=== PATIENT | male | born 1955 | race Caucasian/White ===

== ENCOUNTER 2024-04-21 14:44 | Inpatient (IN) | payer MEDICARE, OTHER, SELFPAY ==
[2024-04-21] VITALS (37 sets, daily range): BP systolic 121–146; BP diastolic 68–98; BMI 23.9; BMI 22.5
[2024-04-21 13:47] LABS: Glucose - Point of Care 113 mg/dl (70-99)
--- NOTE | 2024-04-21 13:48 | CON.NEURO4 ---
Consultation - Neurology 4
-
CONSULTING PHYSICIAN: Lobo Liriano
REFERRING PHYSICIAN: ER
DICTATED BY: Lobo Liriano
DATE/TIME OF REQUEST: 04/21/24
DATE/TIME OF CONSULTATION: 04/21/24
Reason for Consultation: Right sided weakness stroke alert
History of Present Illness:
Patient is a 68 year old man with history of stage 4 renal cancer and hypertension presenting as stroke alert with right face/arm/leg weakness starting at approximately 1:10 PM today. He woke up feeling fine and had gone to [place] with his
daughter in law to enjoy shopping and the weather. He had exited the car and was not walking, lowered himself to the ground, and in the minutes after this had giving out of his right leg and right arm weakness as well. He had no head trauma or
loss of consciousness. EMS quickly arrived and on their assessment he had right facial weakness, dysarthria, right arm and leg weakness, normal blood sugar.
Patient is on no blood thinners, no history of TIA or stroke previously, no history of any recent bleeding events or surgeries, no brain bleed in the past or any neurosurgeries to brain or spine. He is compliant with medications for hypertension
cancer. He was diagnosed with renal cancer in October 2023, has been on Keytruda infusion and PO Lenvatinib.
Past Medical History: Stage 4 renal cell carcinoma, hypertension
Surgical History: None
Family History: Non-contributory
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
Allergies: Latex
Review of Symptoms:
Patient denies any fever, headache, chest pain, shortness of breath, GI or symptoms.
Physical Exam:
Middle aged man no distress, no head or neck trauma, oropharynx clear, neck no masses, heart rate regular, breathing unlabored, abdomen soft non tender, no lower extremity edema or rash
Neurologic Examination:
Mental status awake and alert, good insight, conversational, comprehension of complex commands and repetition is normal, no neglect on arms
Cranial nerves shows moderate dysarthria, obvious right facial weakness, resting gaze midline, no gaze deviation, pupils 3 mm round equally reactive to light no ptosis, intact visual villagomez to confrontation bilaterally, tongue midline,
Motor exam shows right arm downward drift, minimal right leg downward drift, left arm and leg full strength
Sensory exam no sensory neglect, intact to noxious stimulation
Reflexes diminished throughout, no clonus, babinski negative
Gait Deferred
Neuro Imaging: CT head non contrast no hemorrhage seen, no hyperdense MCA sight seen, no early ischemia seen, ASPECTS of 10, no chronic infarcts seen, no masses or edema, no hydrocephalus
CTA head and neck no significant carotid or intracranial stenosis or occlusions, no aneurysms or vessel malformations, bilateral pulmonary embolisms seen
Impressions
1. Acute left sided ischemic stroke s/p TNK, no large vessel occlusions on CTA head neck. Most likely etiologies are hypercoaguability of malignancy versus small vessel disease from hypertension
2. Acute pulmonary embolism appears minimally to asymptomatic
3. Stage 4 renal cancer
4. Hypertension
Patient has the following risk factors for their symptoms: Hypertension, age, malignancy
IV Tenecteplase/IAT candidacy: Patient presents with disabling symptoms due to ischemic stroke within 4.5 hour time window for TNK with no contraindications to TNK, risks of TNK discussed including allergy, anaphylaxis angioedema, 4-6% chance of
intracranial bleeding, benefits are felt to outweigh risks and patient consented to medication, patient endorsed understanding of reasons for medications as well as risks and is agreeable. No LVO on CTA not an IAT candidate
Recommendations:
1. s/p TNK precautions for acute stroke, ICU level of care
2. Would obtain CT head non contrast tomorrow before the 24 hour shantel after TNK, will put in for 11 AM. Would wait 24 hours after TNK administration before therapeutic anticoagulation.
3. MRI brain non contrast non urgently, can wait until later in the day 04/22 or 04/23 is acceptable
4. Cardiac telemetry
5. Transthoracic echocardiogram given the PE
6. BP goal less than 180/105, labetalol PRN
7. Neuro checks and NIH scales
8. Goal normoglycemia
9. Check lipid panel and HbA1c
10. Monitor respiratory and cardiac status given the PE
Will follow
ICU time = 60 minutes
Discussed patient care with: Patient, his family, ER
NIH Stroke Score
Subsequent NIH Scale
Date of Subsequent NIH Scale: 04/21/24
Time of Subsequent NIH Scale: 13:49
NIH Stroke Score
Level of Consciousness: 0 - Alert
LOC Questions: 0-Answers both correctly
LOC Commands: 0-Performs both correctly
Best Horizontal Gaze: 0-Normal
Visual Villagomez: 0=Normal, no visual loss
Facial Palsy: 2=Partial paralysis
Motor - Right Arm: 1=Drift < 10 seconds
Motor - Left Arm: 0=No drift 10 seconds
Motor - Right Le-Drift < 5 seconds
Motor - Left Le-No drift 5 seconds
Limb Ataxia: 0-Absent
Sensation: 0-Normal
Best Language: 0-No aphasia
Dysarthria: 1-Mild slurring
Extinction and Inattention: 0-No abnormality
Total Score:: 5
Modified Moffat (mRS) Score
Modified Moffat Scale (mRS): No symptoms
Score: 0
Home Medications
-
Home Medications
amlodipine 10 mg tablet 10 mg PO DAILY 04/21/24
chlorthalidone 25 mg tablet 25 mg PO DAILY 04/21/24
finasteride 5 mg tablet 2.5 mg PO DAILY 04/21/24
lactulose 10 gram/15 mL oral solution (Constulose) 30 ml PO BID 04/21/24
lenvatinib 8 mg/day (4 mg x 2) capsule (Lenvima) 0 mg PO PER PKG DIR 04/21/24
levothyroxine 75 mcg tablet (Synthroid) 75 mcg PO DAILY 04/21/24
losartan 100 mg tablet 100 mg PO DAILY 04/21/24
oxycodone myristate 9 mg capsule sprinkle extended release 12 hr(DON'T CRUSH) (Xtampza ER) 9 mg PO BID 04/21/24
sildenafil 100 mg tablet 100 mg PO DAILYPRN PRN ed 04/21/24
Vital Signs / Labs
-
Vital Signs and Labs:
04/21/24
13:46
POC Glucose 113 H
--- NOTE | 2024-04-21 13:48 | PHANOTE ---
Med Rec Note- patient has not ecw, used pharmacy records, and awaiting family arrival
--- NOTE | 2024-04-21 13:54 | ED.GENMED ---
History of Present Illness
General
Chief Complaint: CVA/TIA Symptoms
Source: patient and ambulance crew
Exam Limitations: none
Time Seen by Provider: 04/21/24 13:44
History of Present Illness
History of Present Illness:
See MDM
Past History
Past History
ED Past Medical History: HTN
ED Past Surgical History: None
Social History
Tobacco: Non-smoker
Alcohol: None
Phy Exam
Physical Exam
Physical Exam:
See MDM
Scores
NIH Stroke Score
Level of Consciousness: 0 - Alert
LOC Questions: 0-Answers both correctly
LOC Commands: 0-Performs both correctly
Best Horizontal Gaze: 0-Normal
Visual Villagomez: 0=Normal, no visual loss
Facial Palsy: 2=Partial paralysis
Motor - Right Arm: 1=Drift < 10 seconds
Motor - Left Arm: 0=No drift 10 seconds
Motor - Right Le-Drift < 5 seconds
Motor - Left Le-No drift 5 seconds
Limb Ataxia: 0-Absent
Sensation: 0-Normal
Best Language: 0-No aphasia
Dysarthria: 1-Mild slurring
Extinction and Inattention: 0-No abnormality
Total Score:: 5
Course
Orders/Labs/Results
Orders:
Orders
04/21/24 13:44
Electrocardiogram (*1) Stat
Reason for Study: Other
Other Reason for Exam: neuro symptoms
CT Head W/o Cont STROKE ALERT Urgent
Reason For Exam: R sided paralysis, slurred speech
CT Head/Neck Ang STROKE ALERT Urgent
Comment:
Reason For Exam: R hemiparesis
NEUROLOGY CONSULT Urgent
Consulting Provider: Gilbert Liriano
Was physician already notified: Yes
Cardiac Monitoring- Treatment ONCE
EKG- Treatment ONCE
04/21/24 14:00
Complete Blood Count/With Diff Urgent
Comprehensive Metabolic Panel Urgent
PTT Urgent
Prothrombin Time Urgent
Troponin I Urgent
04/21/24 14:02
Tenecteplase [Tnkase] 18 mg Syringe [Syringe Non-Pump] 0 ml IV NOW
04/21/24 15:00
Flush (0.9% Sodium Chloride) [Flush (Nss)] See Dose Instructions IV PER PROTOCOL
Abnormal Lab Results
04/21/24 04/21/24
13:46 14:00
WBC 4.6 L 10^3/uL
(4.8-10.8)
RBC 3.64 L 10^6/uL
(4.70-6.10)
Hgb 11.5 L g/dL
(13.0-18.0)
Hct 32.5 L %
(39.0-52.0)
MCH 31.6 H pg
(27.0-31.0)
RDW 16.1 H %
(11.5-14.5)
PT 15.4 H Sec
(11.4-14.6)
POC Glucose 113 H mg/dl
(70-99)
04/21/24 14:00
Vital Signs
Initial and Last Documented VS:
Initial Vital Signs
Temp Pulse Resp Pulse Ox
98.5 F 103 15 100
04/21/24 14:03 04/21/24 14:03 04/21/24 14:03 04/21/24 14:03
Last Documented Vital Signs
Temp Pulse Resp BP Pulse Ox
98.5 F 101 14 134/84 100
04/21/24 14:03 04/21/24 14:08 04/21/24 14:08 04/21/24 14:08 04/21/24 14:03
MDM/Problems Addressed
Differential Diagnosis Includes:
HPI and MDM Narrative:
68-year-old male presenting by EMS as a prearrival stroke alert. Per EMS, symptoms started around 1:10 PM. Patient got out of his car and it was noted that he had right-sided weakness and right facial droop. On arrival to the emergency department
by myself and neurology immediately. Patient sent to CT scanner
Family indicating history of metastatic renal cancer to lung
Physical exam
General: Well appearing and non-toxic
HEENT: protecting airway
Neck: appears supple
CV: No evidence of cyanosis.. Regular rate and rhythm
Resp: No accessory muscle use
Abd: Non-distended
Extremities: No deformities
Neuro: Right-sided facial droop, drift to right arm and right leg, mild dysarthria
Psych: Normal affect
Skin: Intact
Problems Addressed including Acute and Chronic Conditions affecting care:
1. CVA
Acuity: acute
Prognosis: unstable
Details: CT head negative. Case discussed with neurology. Patient is a TNK candidate
Updates
Symptoms are somewhat improving but still there. He is still in the TNK window. Patient consented for TNK
2:15 PM radiology called indicating multiple PEs. Will continue with TNK. The admitting team was updated
Differential Diagnosis (but not limited to): Stroke, intracranial hemorrhage, TIA
Testing considered: Brain MRI
Drug therapy (if applicable): OTC meds, please see d/c instruction regarding Rx drugs
Amount and/or Complexity of Data Reviewed
Clinical info obtained from: Patient
External data reviewed: N/A
Labs I independently reviewed (but not limited to): Hgb
Radiology: The CT scan was personally and independently reviewed. In addition, official CT report reviewed.
Pulse Ox: not hypoxic
EKG independently reviewed: Sinus tachycardia, normal axis, no STEMI
Econometrics Professor: Sinus rhythm
Critical Care: The high probability of a clinically significant, sudden or life threatening deterioration of the neurovascular/pulmonary system(s) required my full and direct attention, intervention and personal management. The aggregate critical
care time was 33 minutes. This time is in addition to time spent performing reported procedures but includes the following:
[x] Data Review and interpretation
[x] Patient assessment and monitoring of vital signs
[x] Documentation
[x] Medication orders and management
Risk of Complication:
Social Determinants of health: Good social support
Discussed with other providers: Hospitalist, neurology, radiology
Escalation of Care includes Admit/Obs: Given the concern for stroke and PEs, will admit
Occasional wrong word or 'sound a like' substitutions may have occurred due to the inherent limitations of voice recognition software. Read the chart carefully and recognize, using context, where substitutions have occurred.
*Critical Care Note
Total Time (30-74mins, 75-104mins- exclusive of procedures): 33 min
ED Attending Note
-
Portions of this chart may have been created with voice recognition software.� Occasional wrong word or��sound alike� substitutions may have occurred due to the inherent limitations of voice recognition software.
Discharge Plan
Departure
Patient Disposition: Admit
Date of Disposition: 04/21/24
Time of Disposition: 14:21
Admit to: ICU
Presentation/result/management discussed w/ accepting MD/DO: Hospitalist
Discharge Problem:
Acute CVA (cerebrovascular accident), Pulmonary embolism
Prescriptions:
No Action
chlorthalidone 25 mg Tablet
25 mg PO DAILY
sildenafil 100 mg Tablet
100 mg PO DAILYPRN PRN (Reason: ed)
levothyroxine [Synthroid] 75 mcg Tablet
75 mcg PO DAILY
amlodipine 10 mg Tablet
10 mg PO DAILY
losartan 100 mg Tablet
100 mg PO DAILY
finasteride 5 mg Tablet
2.5 mg PO DAILY
lactulose [Constulose] 10 gram/15 mL solution
30 ml PO BID
Xtampza ER 9 mg Cap,Sprinkl,Er12hr(Dont Crush)
9 mg PO BID
Lenvima 8 mg/day (4 mg x 2) Capsule
0 mg PO PER PKG DIR
Interventions
Interventions:
*ED COVID-19 Vaccine History Last Done: 04/21/24 14:05
ED- Pulmonary Assessment Last Done: 04/21/24 14:06
ED- Cardiac Assessment Last Done: 04/21/24 14:06
Discharge Date and Time
Print Language: CHINESE
[2024-04-21] MEDS: TNKASE 3.60000000000000009 MG IV (14:07)
[2024-04-21 14:08] LABS: % Basophils 0.7 % (0-2); % Eosinophils 2.2 % (0-6); % Lymphocytes 38.6 % (20.5-51.1); % Neutrophils 49.5 % (42.2-75.2); Absolute Eosinophils 0.1 10^3/uL (0-0.7); Absolute Lymphocytes 1.8 10^3/uL (1.2-3.4); Absolute Monocytes 0.4 10^3/uL (0.1-0.6); Absolute Neutrophils 2.3 10^3/uL (1.4-6.5); Hematocrit 32.5 % (39.0-52.0); Hemoglobin 11.5 g/dL (13.0-18.0); Mean Corp Hgb Conc. 35.4 g/dL (33.0-37.0); Mean Corpuscular Hgb 31.6 pg (27.0-31.0); Mean Corpuscular Volume 89.3 fL (80.0-94.0); Mean Platelet Volume 9.2 fL (7.4-10.4); Nucleated Red Blood Cells % 0 % (-); Platelet Count 142 10^3/uL (130-400); Red Blood Cell Count 3.64 10^6/uL (4.70-6.10); Red Cell Dist. Width 16.1 % (11.5-14.5); White Blood Cell Count 4.6 10^3/uL (4.8-10.8)
--- NOTE | 2024-04-21 14:13 | HPS.HSE ---
Addendum entered and electronically signed by Dejuan Mcmanus MD 04/21/24 14:57:
I saw and examined the patient.
The PHP SOFTWARE ENGINEER or PA's note was reviewed and I agree with the note.
Comment:
68-year-old male with stage IV renal cancer and hypertension presents for right face/arm/leg weakness starting at 1:10 PM today.� Woke up feeling fine, exited the car and was not walking, lowered self to the ground this afternoon.� No head trauma or
loss of consciousness.� Is on no blood thinners, no history of stroke.� No other recent bleeds or recent surgeries.� Hemodynamically stable, 90s percent on room air.� Blood pressure 124/83, respiratory rate 14, pulse 94.� Head CT initially with no
acute intracranial abnormalities.� CT findings with suspicion of bilateral proximal pulmonary embolisms bilaterally without saddle embolus.� No findings to suggest intracranial arterial stenosis.� Patient given TNK in the ED.� Transferred to ICU.�
Plan�continue permissive hypertension with SBP goal under 180 and DBP goal under 105.� Labetalol IV as needed.� Hold other antihypertensives.� Can continue Synthroid, lactulose (for constipation). �Repeat CT head tomorrow afternoon, can start
heparin drip if no worsening intracranial hemorrhage at that point.� Follow-up echo to ensure no PFO.� MRI.� Lipid panel, hemoglobin A1c.� Follow-up neurology, supervisor heat treating care.
Original Note:
Family Physician
-
Family Physician:
Chief Complaint
-
right sided weakness
History of Present Illness
68 year old with PMH for right kidney ca mets to lungs and adrenal glands presented to us with right sided weakness, slurred speech and right sided drooping this morning. patient got out of the car and was not able to stand, he was falling off.
denied ELMORE, dizzy or syncopal episode. denied fever, chills, chest pain, sob. denied runny nose, congestion, cough. denied abdominal pain, n,v,d. denied dysuria or hematuria.
head neck CTA with highly suspicious for bilateral proximal pulmonary artery embolism bilaterally without saddle-like embolus. More distal pulmonary arterial branches not included on this study. Cannot assess for right heart strain.
patient received tnkase in ER. admitting for further manamgent.
Medical History
Past Medical History
Past Medical History: Reports Other
Additional Past Medical History:
HTN
kidney ca varun to lungs and adrenal glands
Past Surgical History: Reports None
Social History
Tobacco: Non-smoker
Alcohol: None
Drug: None
Family History
Family History: Not pertinent
Allergies / Home Medications
Allergies reflects when Allergies were last updated in [facility].
Home Medications with original date entered in [facility]
Allergy/Medication List:
Allergies
Allergy/AdvReac Type Severity Reaction Status Date / Time
latex Allergy Unknown Verified 04/21/24 14:03
Home Medications
amlodipine 10 mg tablet 10 mg PO DAILY 04/21/24
chlorthalidone 25 mg tablet 25 mg PO DAILY 04/21/24
finasteride 5 mg tablet 2.5 mg PO DAILY 04/21/24
lactulose 10 gram/15 mL oral solution (Constulose) 30 ml PO BID 04/21/24
lenvatinib 8 mg/day (4 mg x 2) capsule (Lenvima) 0 mg PO PER PKG DIR 04/21/24
levothyroxine 75 mcg tablet (Synthroid) 75 mcg PO DAILY 04/21/24
losartan 100 mg tablet 100 mg PO DAILY 04/21/24
oxycodone myristate 9 mg capsule sprinkle extended release 12 hr(DON'T CRUSH) (Xtampza ER) 9 mg PO BID 04/21/24
sildenafil 100 mg tablet 100 mg PO DAILYPRN PRN ed 04/21/24
Review of Systems
-
Constitutional: Reports No Symptoms
EENT: Reports No Symptoms
Respiratory: Reports No Symptoms
Cardiac: Reports No Symptoms
Abdomen/GI: Reports No Symptoms
: Reports No Symptoms
Musculoskeletal: Reports No Symptoms
Skin: Reports No Symptoms
Neurological: Reports Weakness (right sided weakness, slurred speech, )
Endocrine: Reports No Symptoms
Hematologic/Lymphatic: Reports No Symptoms
Psych: Reports No Symptoms
Physical Exam
Vital Signs
Vital Signs
Temp Pulse Resp BP Pulse Ox
98.5 F 101 14 134/84 100
04/21/24 14:03 04/21/24 14:08 04/21/24 14:08 04/21/24 14:08 04/21/24 14:03
Physical Exam
General: Well Developed, Well Nourished and No Apparent Distress
HEENT: NormoCephalic, Moist mucous membranes and Atraumatic
Respiratory: Clear
Cardiac: S1/S2 and Regular Rhythm; No Murmur or Rub
GI: Soft, Non Tender, Non Distended and Normal Bowel Sounds; No Organomegaly
Rectal: Deferred by Provider
Musculoskeletal: No Clubbing, No Cyanosis and No Edema
Skin: No Rash
Neuro: AO x 3 and Nonfocal/grossly intact
Psych: Calm
Data Reviewed
-
CT Scan: Report Reviewed by me
Lab Data: Labs Reviewed by me
Impression/Plan
-
#acute CVA
-after TNK in ER
-head CT with no acute abnormality
-head neck CTA Findings highly suspicious for bilateral proximal pulmonary artery embolism bilaterally without saddle-like embolus. More distal pulmonary arterial branches not included on this study. Cannot assess for right heart strain.
-obtain a1c.lipid profile
-obtain MRI
-repeat CT tomorrow
-obtain ECHO
-PT/OT
-neuro consult
#pulmonary embolism
-hold AC for 24 hours
-obtain Duplex in AM
-oxygenating very well on RA
-CTm
#hxt of HTN
-BP stable
-hold hypertensive meds until tomorrow
-allow permissive HTN
#BPH
-finasteride continued
#constipation
-lactulose continued
#hypothyroidism
-levothyroxine continued
#hxt of stage 4 right kidney ca varun to adrenal glands and lungs
-diagnosed in October
- on Keytruda infusion every 6 weeks
-due for infusion next week at [facility].
-on Lenvima daily
#CODE status
-full code
[2024-04-21 14:17] LABS: INR 1.24; PT 15.4 Sec (11.4-14.6)
[2024-04-21 14:19] LABS: APTT 33.8 Sec (23.4-35.0)
[2024-04-21 14:26] LABS: ALT (SGPT) 23 U/L (0-50); AST (SGOT) 28 U/L (17-59); Albumin 2.6 g/dl (3.5-5.0); Alkaline Phosphatase 102 U/L (38-126); Blood Urea Nitrogen 19 mg/dl (9-20); Calcium 8.3 mg/dl (8.4-10.2); Carbon Dioxide 25 mmol/L (22-30); Chloride 104 mmol/L (98-107); Estimated Creatinine Clearance 77 ml/min; Glucose 123 mg/dl (70-99); Potassium 3.9 mmol/L (3.5-5.1); Sodium 134 mmol/L (135-145); Total Bilirubin 0.4 mg/dl (0.2-1.3); Total Protein 5.7 g/dl (6.3-8.2); eGFR > 60.00
[2024-04-21 14:32] LABS: Troponin I < 0.012 ng/ml
--- NOTE | 2024-04-21 15:12 | CON.INTV ---
Consultation
Consultation Request
Date/Time Consultation Requested: 04/21/2024- 145
Date/Time Consultation Performed: 04/21/2024 - 1510
Requesting Provider: RAMILA Flores
Performing Provider: Dr. Lechuga
Reason for Consultation: s/p TNK
Medical History
-
Chief Complaint: Difficulty speaking/walking
History of Present Illness:
68-year-old male non-smoker with a past medical history of metastatic renal cell carcinoma with reportedly metastatic disease to the lungs and adrenal glands comes in with sudden right-sided weakness with slurred speech and right-sided facial droop.
Patient had gotten out of his car with his family and then suddenly had sudden right leg weakness and slipped over and fell onto a nearby bike. EMS was called he was brought in for further evaluation. Last known normal was 1310 today. Stroke
alert called and CT head showed no acute intracranial abnormality. CTA head/neck then done showing no proximal intracranial arterial stenosis, no internal carotid artery or vertebral artery dissection, and there was normal blood flow throughout the
[place] without significant stenosis or vessel cutoff, with some relative decreased blood flow in the left M3�4 anterior division could not be excluded. Incidentally there was a bilateral proximal pulmonary artery embolism without saddle
like embolism seen. Neurology consulted and there was concern for acute left-sided ischemic stroke. TNK was reviewed with the patient including the risks and benefits, and he was administered at 1407 on 04/21/2024. Patient then transferred to the
ICU for further care and critical care services consulted for additional management/recommendations.
When I saw the patient he was starting to feel much better. Multiple family members at bedside and I answered all their questions. He still feels a little weak in his right arm and leg but his slurred speech is much improved. Family says that he
was almost completely nonverbal and unresponsive when the episode first started, and now he is speaking much more like himself. He does follow oncology at [facility] with next appointment this upcoming . He is on Keytruda and Lenvatinib.
He denies ever having history of a pulmonary embolism. He currently denies any recent flights or recent long car rides. He currently denies headache, chest pain, shortness of breath, fevers or chills. He is breathing comfortably on room air
saturating 95%, heart rate 83 and BP 127/90.
PMHx: Hypertension, metastatic renal cancer, BPH, hypothyroidism, hypertension, GERD
PSHx: None reported
Past Medical History
Past Medical History: Other (Above as per HPI)
Past Surgical History: Other (Above as per HPI)
Social History
Tobacco: Non-smoker
Alcohol: None
Drug: None
Family History
Family History: Reviewed & Not Pertinent
Allergies / Home Medications
Allergies
Allergy/AdvReac Type Severity Reaction Status Date / Time
latex Allergy Unknown Verified 04/21/24 14:03
Home Medications
�Medication �Instructions �Recorded �Confirmed �Last Taken �Type
amlodipine 10 mg tablet 10 mg PO DAILY 04/21/24 Unknown History
chlorthalidone 25 mg tablet 25 mg PO DAILY 04/21/24 Unknown History
finasteride 5 mg tablet 2.5 mg PO DAILY 04/21/24 Unknown History
lactulose 10 gram/15 mL oral 30 ml PO BID 04/21/24 Unknown History
solution (Constulose)
lenvatinib 8 mg/day (4 mg x 2) 0 mg PO PER PKG DIR 04/21/24 Unknown History
capsule (Lenvima)
levothyroxine 75 mcg tablet 75 mcg PO DAILY 04/21/24 Unknown History
(Synthroid)
losartan 100 mg tablet 100 mg PO DAILY 04/21/24 Unknown History
oxycodone myristate 9 mg capsule 9 mg PO BID 04/21/24 Unknown History
sprinkle extended release 12
hr(DON'T CRUSH) (Xtampza ER)
sildenafil 100 mg tablet 100 mg PO DAILYPRN PRN ed 04/21/24 Unknown History
Review of Systems
-
History Source: Patient
All other systems: Negative unless noted
Vitals / Labs / Diagnostic Testing
Vital Signs
Temp Pulse Resp BP Pulse Ox
98.5 F 91 16 121/83 100
04/21/24 14:03 04/21/24 14:23 04/21/24 14:23 04/21/24 14:23 04/21/24 14:22
Lab Data
04/21/24 14:00
04/21/24 14:00
Laboratory Results
04/21/24
14:00
PT 15.4 H
INR 1.24
APTT 33.8
Diagnostic Testing:
Physical Exam
-
HEENT: Normocephalic and Anicteric
Cardiovascular: S1/S2 and Peripheral Edema (Negative)
Respiratory: Wheeze (Negative), Rales (Right basilar rales), Rhonchi (Negative) and Non-Labored Respirations
GI: Soft, Non Distended, Non Tender and Normal Bowel Sounds
Neurology: AO x 3, Tremors (n) and Other (Right graduate assistant athletic trainer strength is 4/5, right foot plantarflexion is 4/5, intact sensation in arms and legs, cranial nerves are intact (II-XII))
Skin: Warm and Dry
General: Comfortable
Assessment
-
Assessment: 68-year-old male non-smoker with a past medical history of metastatic renal cell carcinoma with reportedly metastatic disease to the lungs and adrenal glands comes in with sudden right-sided weakness with slurred speech and right-sided
facial droop. Patient had gotten out of his car with his family and then suddenly had sudden right leg weakness and slipped over and fell onto a nearby bike. EMS was called he was brought in for further evaluation. Last known normal was 1310
today. Stroke alert called and CT head showed no acute intracranial abnormality. CTA head/neck then done showing no proximal intracranial arterial stenosis, no internal carotid artery or vertebral artery dissection, and there was normal blood flow
throughout the [place] without significant stenosis or vessel cutoff, with some relative decreased blood flow in the left M3�4 anterior division could not be excluded. Incidentally there was a bilateral proximal pulmonary artery embolism
without saddle like embolism seen. Neurology consulted and there was concern for acute left-sided ischemic stroke. TNK was reviewed with the patient including the risks and benefits, and he was administered at 1407 on 04/21/2024. Patient then
transferred to the ICU for further care and critical care services consulted for additional management/recommendations.
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
Impression:
#Unilateral weakness with suspected left-sided acute ischemic stroke s/p TNK
#Incidentally discovered submassive bilateral pulmonary embolism - not suspected to be causing RV strain given his pulmonary artery is 15 mm diameter (perhaps there is a PFO that may have contributed to his CVA Sx)
#Leukopenia
#Anemia
#Mild hyponatremia
#Hypoalbuminemia
#Hx of metastatic RCC on keytruda and lenvatinib
#HTN
#BPH
Plan:
- s/p TNK precautions with q1hr neurochecks, repeat CT head in 24 hrs, as per neurology, with NIHSS as per stroke protocol
- No anticoagulant/antiplatelet medications given recent TNK administration
- Given this incidentally discovered bilateral PE, check 2D echo with bubble and lower extremity duplex
- Troponin was negative and pulmonary artery is not enlarged, hence I am not concerned with RV dysfunction due to this PE
- As soon as it is safe to do so given TNK was given today, we will start heparin gtt for this PE (tomorrow afternoon once it has been 24 hrs s/p TNK administration)
- Recommend hematology/oncology consultation; should coordinate with his oncologist at [facility] as he is supposed to be taking his lenvatinib daily, but this can cause hemorrhage, hence we will hold this for now
- Maintain SpO2 >94%
- Maintain MAP>65
- Replete electrolytes with K>4, Mg>2
- Maintain euglycemia with goal BG 140-180
- Trend Hb with goal Hb>7g/dL
- No need for ABx at this time; trend WBC
- prn nebulized bronchodilators
- Incentive spirometer
- DVT ppx: SCDs for now
Critical care statement: A total of 40 minutes of critical care time was provided for this patient today. This includes management of unstable vital signs, evaluation of the patient at bedside, reviewing the patient's pertinent medical records
including radiographs, microbiology, laboratory evaluations, and discussion with primary team, consultants, pharmacy, nutrition, physical therapy, case management, charge nurse, critical care nursing, and respiratory therapy.
Data:
CT Head 04-21-2024: No acute intracranial abnormality.
CTA Head/Neck 04-21-2024:
Findings highly suspicious for bilateral proximal pulmonary artery embolism bilaterally without saddle-like embolus. More distal pulmonary arterial branches not included on this study. Cannot assess for right heart strain.
No findings to suggest proximal intracranial arterial stenosis bilaterally. Please see above comments.
No findings to suggest internal carotid artery or vertebral artery dissection bilaterally.
Mildly dominant left vertebral artery.
--- NOTE | 2024-04-21 15:30 | PTCARENOTE ---
Rec'd pt at 1450 via stretcher from the ER. TNK given at 1408. NIH completed with ER staff and NIH currently at 1 for a sl R facial droop. Denies pain. Pt is alert and oriented. Speech is clear- no slurring noted. SYLWIA at 2mm. Denies numbess or
tingling. COYNE. Currently R arm and R leg are equal in strength with the L. Tongue protudes midline. Skin is pink wm and dry. Respirs are unlabored on RA with sat of 96%. BS are sl decreased at the bases otherwise clear. Monitor SR with 1st' avb. +
pulses. DP pulses with the doppler. No edema. Denies chest pain. Abd is soft with + BS. Denies nausea. Denies need to void. Capped ints intact #18 in the R AC and L AC-sites wnl. Call boyd in reach. Plan of care reviewed with pt. Stroke packet given.
--- NOTE | 2024-04-21 16:15 | PTCARENOTE ---
Pts family in to visit- and noted about 10 minutes in to converstation with family at 1600 that speech was a little more slurred although easily understandable and R arm grasp was weaker and had a drift with it. NIH repeated and was a 3. Dr. Liriano
updated. Currently speech is improving again and arm is feeling less weak. VS as documented. See documentation
--- NOTE | 2024-04-21 17:45 | PTCARENOTE ---
Remains resting. No complaints. Family in visiting. Denies headache or dizziness. Still with R facial droop but speech is sl slow but clear. R arm - grasp is very minimally weaker than the L-however with fine motor movement like holding a fork to
eat pt is slow and intentional. Pt admits that R arm doesn't feel like it responds like it normally would. Pt seems like he has to concentrate to use it for a task. Denies numbness in it. Will continue to monitor
--- NOTE | 2024-04-21 18:31 | PTCARENOTE ---
Pt due to have US of the lower extremities and will apply SCD's once US completed. Overall good appetite for dinner. No ataxia noted with feeding himself, but again movement is slow and pt states he needs to concentrate on doing a task with the R
arm. Pt admits to feeling a little tired. Denies need to void. Family in with pt
--- NOTE | 2024-04-21 19:00 | PTCARENOTE ---
Unable to void in bed- sat on the commode next to the bed and voided 600 mls. No changes in assessment
[2024-04-21] MEDS: DUPHALAC/CHRONULAC 30 GRAMS PO (19:56)
--- NOTE | 2024-04-21 20:17 | PTCARENOTE ---
Received patient AAOx3, following commands, denying pain. Family at bedside. NIH done with calvin RN, score of 2. Slight right facial droop and slight right arm weakness noted in hand grasp. Normal sinus, 80s with first degree heart block. BP
stable, 140s/90s. Afebrile, no edema. Awaiting US of legs to put on SCDs. Palpable radial pulses bilaterally, weak palpable pedal pulses bilaterally. 96% on room air, lung sounds clear, diminished at the bases. Regular diet, good appetite. No BM yet
this shift, scheduled lactulose given. Commode to void. Skin intact, rash on back patient states 'comes and goes'. #18 left AC and #18 right AC capped and patent. Call boyd within reach, safe environment maintained.
--- NOTE | 2024-04-21 22:51 | PTCARENOTE ---
Radiologist called to notify this RN patient has a DVT in right leg found on ultrasound. Judith Marte notified, no further intervention at this time as patient cannot receive anticoagulants until 24 hours post TNK. SCD on left leg applied.
[2024-04-22] VITALS (26 sets, daily range): BP systolic 90–147; BP diastolic 64–94; BMI 22.5
[2024-04-22 02:53] LABS: Hematocrit 37.5 % (39.0-52.0); Hemoglobin 13.3 g/dL (13.0-18.0); Mean Corp Hgb Conc. 35.5 g/dL (33.0-37.0); Mean Corpuscular Hgb 31.1 pg (27.0-31.0); Mean Corpuscular Volume 87.6 fL (80.0-94.0); Mean Platelet Volume 9.5 fL (7.4-10.4); Platelet Count 166 10^3/uL (130-400); Red Blood Cell Count 4.28 10^6/uL (4.70-6.10); Red Cell Dist. Width 16.1 % (11.5-14.5); White Blood Cell Count 5.7 10^3/uL (4.8-10.8)
--- NOTE | 2024-04-22 03:07 | PTCARENOTE ---
Assisted patient to the commode to have a BM, heavy 2 person assist, patient was not able to support himself on his right side. Right side is weaker than it was before, right facial droop worsened, new drift in right leg, and ataxia in right arm. In
bed, patient able to hold up right arm and right leg with slight drift. Neuro check remained unchanged besides worsening weakness in right arm and leg. NIH increased to 5 from previous score of 2. Marlene Marte NP aware.
[2024-04-22 03:09] LABS: INR 1.37; PT 16.6 Sec (11.4-14.6)
[2024-04-22 03:10] LABS: APTT 40.7 Sec (23.4-35.0)
[2024-04-22 03:38] LABS: Blood Urea Nitrogen 17 mg/dl (9-20); Calcium 9.5 mg/dl (8.4-10.2); Carbon Dioxide 23 mmol/L (22-30); Chloride 108 mmol/L (98-107); Estimated Creatinine Clearance 76 ml/min; Glucose 106 mg/dl (70-99); HDL Cholesterol 65 mg/dl; LDL Cholesterol, Calculated 125 mg/dl; Sodium 140 mmol/L (135-145); Total Cholesterol 213 mg/dl (50-199); Triglyceride 119 mg/dl (10-149); Very Low Density Lipoprotein 23 mg/dl (0-30); eGFR > 60.00
--- NOTE | 2024-04-22 04:00 | PTCARENOTE ---
Took patient for a stat head CT, returned back to room without any significant events.
--- NOTE | 2024-04-22 04:44 | PTCARENOTE ---
Radiologist called this RN to report new bleed on CT scan of 1 cm. Marlene Marte PHARMACY TECHNICIAN INSTRUCTOR updated, neurology, and neurosurgery also updated via tiger text. Merissa Rehman MD aware, wants SBP<140 and if increased to start nicardipine, plan to rescan head later
this AM.
--- NOTE | 2024-04-22 05:16 | W.PN.UPDATE ---
Addendum entered and electronically signed by Paul Blanc MD 04/22/24 06:50:
Comment:
Case dw DIESEL DINKEY OPERATOR and note was reviewed and I agree with the note.
Original Note:
Update Note
Progress Note Update
Nursing reports increase of NIH from 2 to 5 with worsening (new right leg drift, worse facial droop and r hand limb ataxia). Mentation remained unchanged. CT of head done and shows new 1 cm area of possible bleed. Neurosurgerey aware and will keep
sbp <140. Rescan scheduled for 11 am today.
[2024-04-22] MEDS: SYNTHROID 75 MCG PO (05:52)
--- NOTE | 2024-04-22 07:00 | PTCARENOTE ---
Handoff NIH-6, dysarthria, Right U/E drift & weakness, and facial droop remains. He was encouraged to use his right upper extremity. Doppler pedal pulses. Left Knee-hi SCD intact. Lungs CTA, diminished in the bases. +BSx4. He reports he does not
need his lactulose due to loose stools earlier this morning. He is aware we will maintain bedrest until after 2pm. Safe environment maintained. Will continue to monitor.
--- NOTE | 2024-04-22 08:16 | W.PN.NEURO.1 ---
Today's Communication / Plan
-
-Neurosurgical consultation
-Not recommending Cryoprecipitate given stable small hemorrhage on repeat CT scan and TNK nearly gone from his system at this point
-Remain in ICU
-Neurologic checks and NIH stroke scales
-Hold all antithrombotics and anticoagulation
-Systolic blood pressure goal less than 140, nicardipine infusion
-Check CT head tomorrow morning
-Transthoracic echocardiogram ideally with bubble study
-MRI brain noncontrast eventually which is not urgent
-Contraindicated to anticoagulation at this time, can readdress after 5-7 days but will be a difficult risk/benefit decision between brain hemorrhage and pulmonary embolism
ICU time = 60 minutes
Neuro Assessment/Plan
Assessment
68-year-old male with a past medical history of hypertension and stage IV renal cell carcinoma presented to hospital with symptoms of acute stroke with right facial arm and leg weakness, he received tenecteplase for acute ischemic stroke, initial
NIH stroke scale on my examination is 5, initially showed improvement with NIH stroke scale of around 1-2 after admitted to ICU, in the mock up assembler hours of 04/21 had worsening of right facial arm and leg weakness and was found to have left-sided
basal ganglia hemorrhage.
CTA of the head and neck did not show any significant intracranial occlusion or stenosis but did show bilateral pulmonary emboli, lower extremity ultrasound showed DVT in the right leg.
Brain hemorrhage is presumed hemorrhagic conversion of an initial ischemic stroke to the left basal ganglia in the setting of tenecteplase/thrombolytic therapy for acute ischemic stroke.
Stroke etiology: Possibility for paradoxical embolism if patient has a right to left shunt on the heart, hypercoagulability malignancy is definitely playing a role given DVT and PE, small vessel ischemic etiology of stroke also may be a possibility
given history of hypertension.
Patient contraindicated to anticoagulation with heparin infusion at this time given acute brain hemorrhage.
Pulmonary embolism is concerning but at this time is asymptomatic
Subjective/Objective
Subjective Data
Date of Service: April 22, 2024
Overnight patient had worsened NIH scale with worse right arm, leg and facial weakness, CT head demonstrated left basal ganglia acute hemorrhage.
Patient with no headache or nausea currently, no chest pain or dyspnea. Notes speech is worse and right arm and leg strength are worse
Objective Data
Vital Signs
Temp Pulse Resp BP Pulse Ox
98.6 F 100 21 125/94 97
04/22/24 07:17 04/22/24 08:00 04/22/24 08:00 04/22/24 08:00 04/22/24 06:00
Lab Results
04/22/24 02:45
04/22/24 02:44
PT 16.6 Sec (11.4-14.6) H 04/22/24 02:44
INR 1.37 04/22/24 02:44
APTT 40.7 Sec (23.4-35.0) H 04/22/24 02:44
Sodium 140 mmol/L (135-145) 04/22/24 02:44
Potassium 4.0 mmol/L (3.5-5.1) 04/22/24 02:44
BUN 17 mg/dl (9-20) 04/22/24 02:44
Glucose 106 mg/dl (70-99) H 04/22/24 02:44
Calcium 9.5 mg/dl (8.4-10.2) 04/22/24 02:44
LDL Cholesterol, Calc 125 mg/dl 04/22/24 02:44
Patient Allergies
latex Allergy (Verified 04/21/24 14:03)
Unknown
Review of Systems
-
History Source: Patient
All other systems: Reviewed and negative
Constitutional: No Symptoms
EENT: No Symptoms Reported
Respiratory: Negative Trouble Breathing
Cardiac: Negative Chest Pain or Palpitations
Abdomen/GI: No Symptoms
Genitourinary: No Symptoms
Musculoskeletal: No Symptoms
Skin: No Symptoms
Neuro: Weakness and Speech Problem; Negative Headache
Endocrine: No Symptoms
Hematologic / Lymphatic: No Symptoms
Allergy / Immunology: No Symptoms
Physical Exam
-
General: Well Developed and Comfortable; Negative Appears in Distress
Eyes: No Ptosis
HEENT: Normocephalic and Atraumatic
Neck: No Bruits Bilaterally
Respiratory: Negative Wheezes
Cardiac: Regular Rhythm and No Murmur
GI: Normal Bowel Sounds, Soft and Non-tender
Skin: Unremarkable
Extremities: No Clubbing
Psych: Unremarkable
Extended Neurological Exam
Mood & Affect: Mood Unremarkable and Affect Unremarkable
Attention Span & Concentration: Awake, Alert and Interactive
Memory: Unremarkable
Tremor: Hand Tremor Absent
Involuntary Movement: None
Speech: Quality Unremarkable and Quantity Unremarkable; Negative Expressive Aphasia, Receptive Aphasia or Dysarthric
Cranial Nerve II: Left Eye: Pupillary Reactivity Unremarkable and Pupillary Size Unremarkable
Cranial Nerve II: Right Eye: Pupillary Reactivity Unremarkable and Pupillary Size Unremarkable
Cranial Nerves III, IV, : Extraocular Movement: Extraocular Movement Full in all Directions
Cranial Nerve VII: Facial Symmetry: Other (Obvious right facial weakness at rest and with smiling)
Muscle Strength, Overall: Other (Right arm abduction and flexion 4/5, right hip flexion 4/5)
Pronator Drift: Drift in Right Upper Extremity and Drift in Right Lower Extremity
Deep Tendon Reflexes: Trace Throughout
Touch Sensation: Unremarkable
Coordination: Other (Mild ataxia right arm)
Intracerebral Hemorrhage Score
-
Glascow Coma Score: 13-15
Age Greater Than Or Equal To 80: No
ICH Volume > Or = 30 mL: No
Intraventricular Hemorrhage: No
Infratentorial Origin of Hemorrhage: No
Score: 0
--- NOTE | 2024-04-22 09:17 | PTOTSP ---
Speech Language Pathology
68M with new acute parenchymal hematoma within the left external capsule/subinsular region p/w s/s of a grossly functional oropharyngeal swallow. Cannot r/o silent aspiration at beside.
Aspiration risk is increased 2/2 acute parenchymal hematoma, right sided facial and lingual weakness, and intermittent throat clearing observed s/p PO trials this date.
Recommendations:
1. Regular solids (IDDSI 7), thin liquids (IDDSI 0)
2. Medications as tolerated
3. Aspiration Precautions: HOB elevated, slow rate, chew well, single sips, single bites
4. Reflux Precautions
5. VSE premature at this time, consider if s/s of aspiration arise
6. MAJOR ASSEMBLY INSPECTOR service to follow closely at the acute care level to assess diet level tolerance, provide dysphagia tx as needed, and to address slurred speech.
--- NOTE | 2024-04-22 09:31 | W.PN.INTV ---
Today's Communication / Plan
Recommendations
New left sided IPH - continue q1hr neurochecks
hold AC for now at least for 7 days s/p ICH
May be able to start chemical ppx in few days if ok by neuro and his IPH is stable
Keep HOB elevated
SBP<140
Melatonin prn for sleep as he is having some insomnia
Assessment
-
Assessment: 68-year-old male non-smoker with a past medical history of metastatic renal cell carcinoma with reportedly metastatic disease to the lungs and adrenal glands comes in with sudden right-sided weakness with slurred speech and right-sided
facial droop. Patient had gotten out of his car with his family and then suddenly had sudden right leg weakness and slipped over and fell onto a nearby bike. EMS was called he was brought in for further evaluation. Last known normal was 1310
today. Stroke alert called and CT head showed no acute intracranial abnormality. CTA head/neck then done showing no proximal intracranial arterial stenosis, no internal carotid artery or vertebral artery dissection, and there was normal blood flow
throughout the lummi of [place] without significant stenosis or vessel cutoff, with some relative decreased blood flow in the left M3�4 anterior division could not be excluded. Incidentally there was a bilateral proximal pulmonary artery embolism
without saddle like embolism seen. Neurology consulted and there was concern for acute left-sided ischemic stroke. TNK was reviewed with the patient including the risks and benefits, and he was administered at 1407 on 04/21/2024. Patient then
transferred to the ICU for further care and critical care services consulted for additional management/recommendations.
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
Impression:
#Unilateral weakness with suspected left-sided acute ischemic stroke s/p TNK
#Acute left-sided intra-parenchymal hemorrhage involving left external capsule/subinsular region measuring 1.1 x 0.6 x 1cm (found on AM of 04/22/2024)
#Incidentally discovered submassive bilateral pulmonary embolism - not suspected to be causing RV strain given his pulmonary artery is 15 mm diameter (perhaps there is a PFO that may have contributed to his CVA Sx)
#RLE DVT in profunda femoral vein
#Leukopenia
#Anemia
#Mild hyponatremia - resolved
#Hypoalbuminemia
#Hx of metastatic RCC on keytruda and lenvatinib
#HTN
#BPH
Plan:
- s/p TNK precautions with q1hr neurochecks, repeat CT head in 24 hrs, as per neurology, with NIHSS as per stroke protocol
- No anticoagulant/antiplatelet medications given recent TNK administration and now with left-sided IPH
- Neurosurgery consulted and recommendations appreciated � no neurosurgical intervention required at this time given small size and location of his ICH. They recommend holding therapeutic anticoagulation for at least 7 days from the time of ICH, if
possible
- Maintain SBP<140mmHg, MAP>65
- Keep HOB >30-45 degrees
- Given this incidentally discovered bilateral PE, check 2D echo with bubble; lower extremity duplex shows a nonocclusive DVT in the right femoral vein, no DVT in the remainder of the bilateral lower extremities
- Troponin was negative and pulmonary artery is not enlarged, hence I am not concerned with RV dysfunction due to this PE
- As soon as it is safe to do so given TNK was given on 04/21 we will start heparin gtt for this PE - unfortunately unable to give AC at this juncture as he developed a left IPH, seen on CT head on 04/22/2024 (see above)
- Recommend hematology/oncology consultation; should coordinate with his oncologist at [facility] as he is supposed to be taking his lenvatinib daily, but this can cause hemorrhage, hence we will hold this for now
- Maintain SpO2 >94%
- Replete electrolytes with K>4, Mg>2
- Maintain euglycemia with goal BG 140-180
- Trend Hb with goal Hb>7g/dL
- No need for ABx at this time; trend WBC
- prn nebulized bronchodilators
- PT/OT
- Incentive spirometer encouraged
- DVT ppx: SCDs for now
Critical care statement: A total of 40 minutes of critical care time was provided for this patient today. This includes management of unstable vital signs, evaluation of the patient at bedside, reviewing the patient's pertinent medical records
including radiographs, microbiology, laboratory evaluations, and discussion with primary team, consultants, pharmacy, nutrition, physical therapy, case management, charge nurse, critical care nursing, and respiratory therapy.
Data:
CT Head 04-22-2024: New acute parenchymal hematoma within the left external capsule/subinsular region measuring up to 1.1 x 0.6 [address] Head 04-21-2024: No acute intracranial abnormality.
CTA Head/Neck 04-21-2024:
Findings highly suspicious for bilateral proximal pulmonary artery embolism bilaterally without saddle-like embolus. More distal pulmonary arterial branches not included on this study. Cannot assess for right heart strain.
No findings to suggest proximal intracranial arterial stenosis bilaterally. Please see above comments.
No findings to suggest internal carotid artery or vertebral artery dissection bilaterally.
Mildly dominant left vertebral artery.
Subjective Dataa
Subjective Data
Date of Service:
Date of Service: April 22, 2024
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
Subjective:
Saw the patient this morning and answered all the family's questions. Head CT this morning showed a new acute intraparenchymal hematoma within the left external capsule/subinsular region measuring 1.1 x 0.6 x 1 cm. Patient also has worsening
right-sided facial droop with right arm/foot weakness. NIH stroke scale this morning was 6. When I saw the patient he was on room air breathing comfortably, saturating 96%, BP 115/93 and heart rate 90. He denies chest pain, abdominal pain, fevers
or chills.
Review of Systems
General: Other (Negative unless mentioned above)
Objective Data
Data Reviewed
Vital Signs / I&O / Oxygen:
Vital Signs
Temp Pulse Resp BP Pulse Ox
98.5 F 101 18 137/89 96
05/26/24 11:01 04/22/24 11:00 04/22/24 11:00 04/22/24 11:00 04/22/24 10:30
Intake and Output
04/21/24 04/22/24 04/23/24
06:59 06:59 06:59
Intake Total 300 / 660 360 / 360
Output Total 600 / 600
Balance -300 / 60 360 / 360
SaO2 96
Physical Exam
General: Respiratory Distress (negative) and Comfortable
HEENT: Normocephalic and Anicteric
Cardiovascular: S1-S2 and Peripheral Edema (negative)
Respiratory: Wheeze (negative), Crackles (negative), Rhonchi (negative) and Non-Labored Respirations
GI: Soft, Non Distended and Non Tender
Neurology: AO x 3, Tremors (negative) and Other (Right instructional material director strength is 3/5, right foot plantarflexion is 4/5, intact sensation in arms and legs, noticeable R-sided facial droop with flattening of [id number] fold; remainder of CN II-XII intact)
Skin: Warm, Dry and Jaundice (negative)
Labs/Micro/Reports
Lab Data
04/22/24 02:45
04/22/24 02:44
Laboratory Results
04/21/24 04/22/24
14:00 02:44
PT 15.4 H 16.6 H
INR 1.24 1.37
APTT 33.8 40.7 H
[2024-04-22] MEDS: PROSCAR 2.5 MG PO (09:36)
[2024-04-22] MEDS: DUPHALAC/CHRONULAC PO (09:41)
--- NOTE | 2024-04-22 11:20 | PTCARENOTE ---
Pt's family encouraged to allow pt to sleep between neurological assessments. They were provided a copy of his recent Head CT report. They are aware that per the report there is no change in his hematoma. They are also aware of another head CT
scheduled for [address] Liriano.
--- NOTE | 2024-04-22 12:10 | PTCARENOTE ---
pthaving difficulty voiding in urinal in bed.
--- NOTE | 2024-04-22 12:53 | PTCARENOTE ---
Pt 2 heavy assist pivoting from commode to bed. He was leaning heavily on his right side. His right arm was just hanging at his side. He was encouraged that he was able to stand better than earlier this morning. Family at the bedside.
--- NOTE | 2024-04-22 13:46 | W.PN.HOSP.TC ---
Today's Communication/Plan
-
Systolic blood pressure goal less than 140, nicardipine infusion
Repeat CT head tomorrow morning
TTE with bubble study
MRI brain most likely on Tuesday
Holding anticoag
Assessment / Plan
Assessment / Plan
Physical Exam
General: Well Developed, Well Nourished and No Apparent Distress
HEENT: NormoCephalic, Moist mucous membranes and Atraumatic
Respiratory: Clear
Cardiac: S1/S2 and Regular Rhythm; No Murmur or Rub
GI: Soft, Non Tender, Non Distended and Normal Bowel Sounds; No Organomegaly
Rectal: Deferred by Provider
Musculoskeletal: No Clubbing, No Cyanosis and No Edema
Skin: No Rash
Neuro: AO x 3 and Nonfocal/grossly intact
Psych: Calm
#acute CVA
#hemorrhagic Conversion s/p TNK in the area of the left basal ganglia which is presumed source of initial ischemic stroke
�Neurosurgical consultation
� Systolic blood pressure goal less than 140, nicardipine infusion
� Repeat CT head tomorrow morning
� TTE with bubble study
� MRI brain most likely on Tuesday
� In setting of hemorrhagic conversion, will hold on anticoagulation for at least 5 to 7 days
�Would favor avoiding cryoprecipitate given small hemorrhage and risk of increased clots
� Hold on antithrombotics, anticoagulation as well
� Hemoglobin A1c 6, LDL 125
- PT/OT
#bilateral proximal pulmonary artery embolism bilaterally without saddle-like embolus
#Nonocclusive thrombus within the right profunda femoris vein.
-holding anticoag due to hemorrhagic conversion of CVA
#hxt of HTN
-BP stable
-SBP goal <140
#BPH
-finasteride continued
#constipation
-lactulose continued
#hypothyroidism
-levothyroxine continued
#hxt of stage 4 right kidney ca varun to adrenal glands and lungs
-diagnosed in October
- on Keytruda infusion every 6 weeks
-due for infusion next week at [facility].
-on Lenvima daily
#CODE status
-full code
Total time spent on today's encounter was 50 minutes which included time spent in counseling the patient/family regarding diagnosis and treatment plan as listed above, goals of care, and symptom management. Case was discussed with nursing staff,
specialists, and care coordinators/case management. All labs and imaging personally reviewed by me. Remainder the time spent in detailed review of previous records, lab data, imaging, and other medical provider documentation.
Anticipated Discharge: > 48 hours
Subjective/Interval History
-
Date of Service: April 22, 2024
worsening right extremity weakness overnight, CT evidence of brain hemorrhage, presumed hemorrhagic conversion in the left basal ganglia. Neurosurgery was consulted.
Objective Data
-
Labs:
Laboratory Results
04/22/24 04/22/24
02:44 02:45
WBC 5.7
Hgb 13.3
Hct 37.5 L
Plt Count 166
PT 16.6 H
INR 1.37
APTT 40.7 H
Sodium 140
Potassium 4.0
Chloride 108 H
Carbon Dioxide 23
BUN 17
Creatinine 0.9
Glucose 106 H
Calcium 9.5
Vital Signs:
Vital Signs
Temp Pulse Resp BP Pulse Ox
98.5 F 95 18 147/89 95
04/22/24 11:01 04/22/24 12:30 04/22/24 12:30 04/22/24 12:00 04/22/24 12:30
I&O
04/21/24 04/22/24 04/23/24
06:59 06:59 06:59
Intake Total 300 / 660 360 / 360
Output Total 600 / 600 700 / 700
Balance -300 / 60 -340 / -340
Review of Systems
-
History Source: Patient
All other systems: Not reviewed unless documented
Data Reviewed
-
Diagnostic Radiology: Image personally visualized and interpreted and Report Reviewed by me
CT Scan: Image personally visualized and interpreted and Report Reviewed by me
Medical Tests (Nuc Med, Echo etc): Report Reviewed by me
Labs: Labs Reviewed by me
--- NOTE | 2024-04-22 14:37 | CON.NS ---
Consultation
-
Date/Time Consultation Performed: 04/22/2024; 14:40
Performing Provider: Ori
Chief Complaint
History of Present Illness
This is a neurosurgical consultation on a 68-year-old gentleman, with past medical history significant for stage IV renal cancer, hypertension, who presented as a stroke alert on 04/21/2024. He presented with acute onset of right-sided weakness that
started approximately 1:10 PM. Patient had no known history of being on any anticoagulants, or antiplatelet agents. Patient received TNK. He was admitted to the ICU. He had improvement of his symptomatology post TNK, but overnight, there was
noted to be a change in his NIH scale from 2-5 with worsening right-sided weakness. He had a new noncontrast head CT, which demonstrated a left deep white matter/basal ganglia ICH. Neurosurgery was contacted. Immediate recommendations were made
to maintain systolic blood pressure strictly less than 140, and to repeat scan in approximately 6 hours.
Patient seen and examined. Denies any headache. Does report significant weakness in the right side, which has been stable, but not improved since his acute changes overnight.
Review of Systems
-
A 10 point review of systems was performed which includes constitutional, ENT, cardiovascular, respiratory, GI, , musculoskeletal, neurologic, hematologic, endocrinologic, and was negative, except for stated in HPI
Medication and Allergies
Home Medications
Home Medications
�Medication �Instructions �Recorded
docusate sodium 100 mg capsule 200 mg PO HS 04/21/24
(Colace)
finasteride 5 mg tablet 2.5 mg PO DAILY 04/21/24
lactulose 10 gram/15 mL oral 30 ml PO DAILY 04/21/24
solution (Constulose)
lenvatinib 8 mg/day (4 mg x 2) 12 mg PO DAILY 04/21/24
capsule (Lenvima)
levothyroxine 75 mcg tablet 75 mcg PO DAILY 04/21/24
(Synthroid)
losartan 100 mg tablet 100 mg PO HS 04/21/24
omeprazole 20 mg capsule,delayed 20 mg PO HS 04/21/24
release
oxycodone myristate 9 mg capsule 9 mg PO BID 04/21/24
sprinkle extended release 12
hr(DON'T CRUSH) (Xtampza ER)
prochlorperazine maleate 10 mg 10 mg PO BIDPRN PRN nausea 04/21/24
tablet (Compazine)
sildenafil 100 mg tablet 100 mg PO DAILYPRN PRN ed 04/21/24
Allergies
Allergies
Allergy/AdvReac Type Severity Reaction Status Date / Time
latex Allergy Unknown Verified 04/21/24 14:03
Physical Exam
-
Exam:
Awake, alert, no apparent distress.
Pupils are equal and reactive.
Right facial droop.
Facial sensation is intact.
Tongue is midline.
Diffuse right arm, and right leg hemiparesis, strength 3/5.
Full strength in left arm and left leg.
Head is normocephalic atraumatic.
Neck is supple
Breathing nonlabored
Regular rhythm
Abdomen soft
Extremities warm
Initial head CT, performed on 04/22/2024 at approximately 3:45 AM was reviewed. There is evidence of a small hyperdensity within the left external Capsule, likely consistent with acute ICH.
Repeat CT scan of the head, performed at approximately 10 AM demonstrates overall stability of size of ICH, without significant increases in size.
Problems
-
Problem Status Onset Code
Pulmonary embolism I26.99
Acute CVA (cerebrovascular accident) I63.9
Assessment / Plan
-
This is a 68-year-old gentleman who presents with right-sided acute ischemic stroke, status post TNK, with small area of hemorrhagic conversion.
Given stable size of ICH on repeat imaging, okay to initiate chemical DVT prophylaxis on 04/23/2024.
Maintain systolic blood pressures strictly less than 140, utilize nicardipine if needed to avoid lability.
Agree with repeat CT scan of the head on 04/23/2024.
Would recommend holding therapeutic oral anticoagulation/anticoagulation for approximately 7 days from the time of the ICH, if possible.
No neurosurgical intervention is indicated given the small size and location of this ICH.
Please call with questions.
--- NOTE | 2024-04-22 15:30 | PTCARENOTE ---
Pt only ate 1 bite of his lunch entree and half of his whipped sweet potatoes. He stated it was too hard to chew his food. He verbalized he did good with chicken salad and the omelette he ate before. Dr. Mcmanus notified. Will change diet to Level
6 soft diet. Pt is amenable to this change and understands we can change it back to regular consistency. Exhaustion may be causing this. He has had a plethora of family visit throughout the day despite me encouraging rest and sleep between
neurological assessments.
--- NOTE | 2024-04-22 20:00 | PTCARENOTE ---
Received pt resting in bed, AAOx3. NIH handoff completed.. NIH = 4. R facial droop and R sided weakness present. 2 person assist to get to BSC. Pt. able to stand and pivot. Q4 neuro checks ongoing. CT scan ordered for AM. SR/ST on tele. HR 90-100s.
BP 120s/90s. Afebrile. SCD on. On RA, pulseox 97%. Lungs CTA but dim at bases. + bowel sounds. Had small formed BM on BSC. Had small amt blood on wipe after wiping- unable to heme test due to urine contamination. RAMILA Marte notified. Will monitor.
Call boyd in reach
[2024-04-22] MEDS: DUPHALAC/CHRONULAC 30 GRAMS PO (20:15)
[2024-04-22] MEDS: MELATONIN 5 MG PO (20:16)
[2024-04-23] VITALS (22 sets, daily range): BP systolic 102–145; BP diastolic 75–99; PULSE 102–105; BMI 22.2
--- NOTE | 2024-04-23 00:05 | PTCARENOTE ---
Pt reassessed. No changes. Assisted pt to BSC again w 2 person assist and he had loose light brown BM.
[2024-04-23 03:53] LABS: Hematocrit 35.8 % (39.0-52.0); Hemoglobin 12.7 g/dL (13.0-18.0); Mean Corp Hgb Conc. 35.5 g/dL (33.0-37.0); Mean Corpuscular Hgb 31.1 pg (27.0-31.0); Mean Corpuscular Volume 87.5 fL (80.0-94.0); Mean Platelet Volume 9.9 fL (7.4-10.4); Platelet Count 176 10^3/uL (130-400); Red Blood Cell Count 4.09 10^6/uL (4.70-6.10); Red Cell Dist. Width 16.2 % (11.5-14.5); White Blood Cell Count 6.3 10^3/uL (4.8-10.8)
[2024-04-23 04:19] LABS: Blood Urea Nitrogen 16 mg/dl (9-20); Calcium 9.4 mg/dl (8.4-10.2); Carbon Dioxide 22 mmol/L (22-30); Chloride 109 mmol/L (98-107); Estimated Creatinine Clearance 85 ml/min; Glucose 101 mg/dl (70-99); Potassium 3.9 mmol/L (3.5-5.1); Sodium 138 mmol/L (135-145); eGFR > 60.00
--- NOTE | 2024-04-23 06:34 | PTCARENOTE ---
No changes overnight. Transported to CT around 0500 without problem. Pt. sleeping.
--- NOTE | 2024-04-23 07:30 | PTCARENOTE ---
Screened by emergency department technician. To MRI via bed.
[2024-04-23] MEDS: SYNTHROID 75 MCG PO (07:54)
[2024-04-23] MEDS: PROSCAR 2.5 MG PO (07:55)
--- NOTE | 2024-04-23 08:00 | W.PN.NEURO.1 ---
Today's Communication / Plan
-
-Okay for heparin DVT prophylaxis at this piont
-Hold aspirin or any anticoagulants
-Tentatively plan for anticoagulation 04/29 which is 7 days after the ICH was seen
-PT/OT okay from my perspective for light PT
-Neuro checks and NIH scales
-Maintain SBP less than 140 maximum
-TTE with bubble given potential for paradoxical embolism
-Modified diet, aspiration precautions
-Monitor telemetry, cardiac and pulmonary status
Will follow
ICU time = 45 minutes
Neuro Assessment/Plan
Assessment
68-year-old male with a past medical history of hypertension and stage IV renal cell carcinoma presented to hospital with symptoms of acute stroke with right facial arm and leg weakness, he received tenecteplase for acute ischemic stroke, initial
NIH stroke scale on my examination is 5, initially showed improvement with NIH stroke scale of around 1-2 after admitted to ICU, in the program planner hours of 04/21 had worsening of right facial arm and leg weakness and was found to have left-sided
basal ganglia hemorrhage.
CTA of the head and neck did not show any significant intracranial occlusion or stenosis but did show bilateral pulmonary emboli, lower extremity ultrasound showed DVT in the right leg.
Brain hemorrhage is presumed hemorrhagic conversion of an initial ischemic stroke to the left basal ganglia in the setting of tenecteplase/thrombolytic therapy for acute ischemic stroke.
Stroke etiology: Possibility for paradoxical embolism if patient has a right to left shunt on the heart, hypercoagulability malignancy is definitely playing a role given DVT and PE, small vessel ischemic etiology of stroke also may be a possibility
given history of hypertension and location in the basal ganglia.
Patient contraindicated to anticoagulation with heparin infusion at this time given acute brain hemorrhage.
Pulmonary embolism is concerning but at this time is asymptomatic
Brain MRI with left preston radiata and basal ganglia infarction with hemorrhagic conversion and small hematoma within the basal ganglia infarct, no other infarcts seen, no edema or masses appreciated
Subjective/Objective
Subjective Data
Date of Service: April 23, 2024
No acute events, no headache or nausea, on a modified diet, stable right arm and leg weakness
Objective Data
Vital Signs
Temp Pulse Resp BP Pulse Ox
98.0 F 84 16 120/79 96
04/23/24 07:43 04/23/24 06:01 04/23/24 06:01 04/23/24 06:01 04/23/24 06:01
Lab Results
04/23/24 03:34
04/23/24 03:34
PT 16.6 Sec (11.4-14.6) H 04/22/24 02:44
INR 1.37 04/22/24 02:44
APTT 40.7 Sec (23.4-35.0) H 04/22/24 02:44
Sodium 138 mmol/L (135-145) 04/23/24 03:34
Potassium 3.9 mmol/L (3.5-5.1) 04/23/24 03:34
BUN 16 mg/dl (9-20) 04/23/24 03:34
Glucose 101 mg/dl (70-99) H 04/23/24 03:34
Calcium 9.4 mg/dl (8.4-10.2) 04/23/24 03:34
LDL Cholesterol, Calc 125 mg/dl 04/22/24 02:44
Patient Allergies
latex Allergy (Verified 04/21/24 14:03)
Unknown
Review of Systems
-
History Source: Patient
All other systems: Reviewed and negative
Constitutional: No Symptoms
EENT: No Symptoms Reported
Respiratory: No Symptoms
Cardiac: No Symptoms
Abdomen/GI: No Symptoms
Genitourinary: No Symptoms
Musculoskeletal: No Symptoms
Skin: No Symptoms
Neuro: Weakness and Speech Problem; Negative Headache
Endocrine: No Symptoms
Hematologic / Lymphatic: No Symptoms
Allergy / Immunology: No Symptoms
Physical Exam
-
General: Comfortable
Eyes: No Ptosis
HEENT: Normocephalic
Neck: No Bruits Bilaterally
Respiratory: Clear to Auscultation
Cardiac: Regular Rhythm
GI: Normal Bowel Sounds
Skin: Unremarkable
Extremities: No Clubbing
Psych: Negative Confused or Agitated
Extended Neurological Exam
Mood & Affect: Mood Unremarkable and Affect Unremarkable
Attention Span & Concentration: Awake, Alert and Interactive
Memory: Unremarkable
Involuntary Movement: None
Speech: Dysarthric; Negative Expressive Aphasia or Receptive Aphasia
Cranial Nerve II: Left Eye: Pupillary Reactivity Unremarkable and Pupillary Size Unremarkable
Cranial Nerve II: Right Eye: Pupillary Reactivity Unremarkable and Pupillary Size Unremarkable
Cranial Nerves III, IV, : Extraocular Movement: Extraocular Movement Full in all Directions
Cranial Nerve VII: Facial Symmetry: Other (Right facial weakness)
Muscle Strength, Overall: Other (Right arm shoulder abduction arm flexion and hip flexion 4/5)
Pronator Drift: Drift in Right Upper Extremity and Drift in Right Lower Extremity
Touch Sensation: Unremarkable
Coordination: Other (No ataxia out of proportion to weakness on right arm)
Intracerebral Hemorrhage Score
-
Glascow Coma Score: 13-15
Age Greater Than Or Equal To 80: No
ICH Volume > Or = 30 mL: No
Intraventricular Hemorrhage: No
Infratentorial Origin of Hemorrhage: No
Score: 0
--- NOTE | 2024-04-23 08:50 | PTCARENOTE ---
Long discussion regarding physical therapy and exercises. He is very motivated and wants to start sooner than later. Dr. Liriano at the bedside and also explaining the importance of active and passive ROM. Pt demonstrating some exercises he is doing
such as arm lifts, making a fist, leg lifts, and other isometric exercises. His facial droop is improved and more movement is seen on the right corner of his mouth when communicating. Speech is clearer. However his right grasp and movement of his
right thumb is poor. Lungs dim at the bases. Moist non-productive cough intermittently. +BSx4. Fair appetite. Encouraged OOB to the chair. He is agreeable. Bilateral protective catheter flushed and patenet.
--- NOTE | 2024-04-23 08:51 | W.PN.INTV ---
Today's Communication / Plan
Recommendations
Ok to change neurochecks to q4hr given that left basal ganglia IPH is stable for >24 hrs
hold AC for now at least for 7 days s/p ICH then start heparin gtt vs NOAC for his PE/DVT
Start chemical ppx if ok by neuro
Keep HOB elevated
SBP<140
Melatonin for sleep as he is having some insomnia
Patient stable for downgrade out of ICU to telemetry. Please start anticoagulation as soon as this is feasible and I will arrange to see him in the office for continued monitoring, and possible PFTs.
Poultry Cleaner/Pulmonary service will now sign off. Thank you for allowing us to be involved in the care of this patient. Please reconsult if there are any additional questions/concerns, or if patient's respiratory status deteriorates.
Assessment
-
Assessment: 68-year-old male non-smoker with a past medical history of metastatic renal cell carcinoma with reportedly metastatic disease to the lungs and adrenal glands comes in with sudden right-sided weakness with slurred speech and right-sided
facial droop. Patient had gotten out of his car with his family and then suddenly had sudden right leg weakness and slipped over and fell onto a nearby bike. EMS was called he was brought in for further evaluation. Last known normal was 1310
today. Stroke alert called and CT head showed no acute intracranial abnormality. CTA head/neck then done showing no proximal intracranial arterial stenosis, no internal carotid artery or vertebral artery dissection, and there was normal blood flow
throughout the [place] without significant stenosis or vessel cutoff, with some relative decreased blood flow in the left M3�4 anterior division could not be excluded. Incidentally there was a bilateral proximal pulmonary artery embolism
without saddle like embolism seen. Neurology consulted and there was concern for acute left-sided ischemic stroke. TNK was reviewed with the patient including the risks and benefits, and he was administered at 1407 on 04/21/2024. Patient then
transferred to the ICU for further care and critical care services consulted for additional management/recommendations.
Chronic conditions CATERING SERVER: Hypertension, metastatic renal cancer, BPH, hypothyroidism, hypertension, GERD
Impression:
#Unilateral weakness with left-sided acute ischemic stroke s/p TNK
#Acute left-sided intra-parenchymal hemorrhage involving left external capsule/subinsular region measuring 1.1 x 0.6 x 1cm (found on AM of 04/22/2024)
#Incidentally discovered submassive bilateral pulmonary embolism - not suspected to be causing RV strain given his pulmonary artery is 15 mm diameter (perhaps there is a PFO that may have contributed to his CVA Sx)
#RLE DVT in profunda femoral vein
#Leukopenia
#Anemia
#Mild hyponatremia - resolved
#Hypoalbuminemia
#Hx of metastatic RCC on keytruda and lenvatinib
#HTN
#BPH
Plan:
- s/p TNK precautions with q1hr neurochecks, repeat CT head in 24 hrs, as per neurology, with NIHSS as per stroke protocol
- No anticoagulant/antiplatelet medications given recent TNK administration and now with left-sided IPH since 04/22/2024
- Neurosurgery consulted and recommendations appreciated � no neurosurgical intervention required at this time given small size and location of his ICH. They recommend holding therapeutic anticoagulation for at least 7 days from the time of ICH, if
possible
- Maintain SBP<140mmHg, MAP>65
- Keep HOB >30-45 degrees
- Given this incidentally discovered bilateral PE, check 2D echo with bubble; lower extremity duplex shows a nonocclusive DVT in the right femoral vein, no DVT in the remainder of the bilateral lower extremities
- Troponin was negative and pulmonary artery is not enlarged, hence I am not concerned with RV dysfunction due to this PE
- As soon as it is safe to do so given TNK was given on 04/21 we will start heparin gtt for this PE - unfortunately unable to give AC at this juncture as he developed a left IPH, seen on CT head on 04/22/2024 (see above)
- Recommend hematology/oncology consultation; should coordinate with his oncologist at [place] as he is supposed to be taking his lenvatinib daily, but this can cause hemorrhage, hence we will hold this for now
- Maintain SpO2 >94%
- Replete electrolytes with K>4, Mg>2
- Maintain euglycemia with goal BG 140-180
- Trend Hb with goal Hb>7g/dL
- No need for ABx at this time; trend WBC
- prn nebulized bronchodilators
- PT/OT
- Incentive spirometer encouraged
- DVT ppx: SCDs for now
Patient stable for downgrade out of ICU to telemetry. Please start anticoagulation as soon as this is feasible and I will arrange to see him in the office for continued monitoring, and possible PFTs.
Poultry Cleaner/Pulmonary service will now sign off. Thank you for allowing us to be involved in the care of this patient. Please reconsult if there are any additional questions/concerns, or if patient's respiratory status deteriorates.
Data:
Brain MRI 04-23-2024: 2.5 cm acute/subacute infarct in the left centrum semiovale periventricular region. Stable adjacent left basal ganglia parenchymal hematoma.
CT Head 04-23-2024: Stable left basal ganglia parenchymal hematoma.
CT Head 04-22-2024: New acute parenchymal hematoma within the left external capsule/subinsular region measuring up to 1.1 x 0.6 x [address] Head 04-21-2024: No acute intracranial abnormality.
CTA Head/Neck 04-21-2024:
Findings highly suspicious for bilateral proximal pulmonary artery embolism bilaterally without saddle-like embolus. More distal pulmonary arterial branches not included on this study. Cannot assess for right heart strain.
No findings to suggest proximal intracranial arterial stenosis bilaterally. Please see above comments.
No findings to suggest internal carotid artery or vertebral artery dissection bilaterally.
Mildly dominant left vertebral artery.
Total time spent today was 75 minutes for this encounter. Time includes reviewing laboratory test/imaging results, reviewing pertinent medical records, obtaining and reviewing medical history, performing an appropriate exam, ordering medications,
tests and procedures. Time also includes documentation of this encounter, coordinating patient care and communicating with other healthcare professionals. Total time does not include separately billed tests performed on this date of service.
Subjective Dataa
Subjective Data
Date of Service:
Date of Service: April 23, 2024
Chief Complaint: Poultry Cleaner Follow Up
Subjective:
Patient seen and evaluated today at bedside. CT head this morning shows stable left basal ganglia hematoma. Brain MRI today also showed a 2.5 cm acute/subacute infarct in the left centrum semiovale periventricular region with a stable left basal
ganglia hematoma. He looks better today, with improved right-sided facial droop and improved strength on the right hand and right foot. He is even speaking more clearly. Current BP 131/80, heart rate 96 and saturating 98% on room air. I answered
all of his and his family's questions.
Review of Systems
General: Other (Negative unless mentioned above)
Objective Data
Data Reviewed
Vital Signs / I&O / Oxygen:
Vital Signs
Temp Pulse Resp BP Pulse Ox
98.0 F 86 18 123/81 97
04/23/24 07:43 04/23/24 08:48 04/23/24 08:48 04/23/24 07:00 04/23/24 08:58
Intake and Output
04/22/24 04/23/24 04/24/24
06:59 06:59 06:59
Intake Total 300 / 660 840 / 840
Output Total 600 / 600 700 / 700
Balance -300 / 60 140 / 140
SaO2 97
Physical Exam
General: Respiratory Distress (negative) and Comfortable
HEENT: Normocephalic and Anicteric
Cardiovascular: S1-S2 and Peripheral Edema (negative)
Respiratory: Wheeze (negative), Crackles (negative), Rhonchi (negative) and Non-Labored Respirations
GI: Soft, Non Distended and Non Tender
Neurology: AO x 3, Tremors (negative) and Other (Right escalator installer strength is 3/5, right foot plantarflexion is 4/5, intact sensation in arms and legs, noticeable R-sided facial droop with flattening of B-fshh-tuhzhj fold; remainder of CN II-XII intact;
pupils 3mm b/l and brisk)
Skin: Warm, Dry and Jaundice (negative)
Labs/Micro/Reports
Lab Data
04/23/24 03:34
04/23/24 03:34
--- NOTE | 2024-04-23 09:26 | W.PN.HOSP.TC ---
Addendum entered and electronically signed by Dejuan Mcmanus MD 04/23/24 14:17:
I saw and examined the patient.
The Residents note was reviewed and I agree with the note.
Comment: 2.5 cm acute/subacute infarct in the left centrum semiovale periventricular region. Stable adjacent left basal ganglia parenchymal hematoma. OKay to start dvt ppx. Pending ECHO with bubble. DG today.
Physical Exam
General: Well Developed, Well Nourished and No Apparent Distress
HEENT: NormoCephalic, Moist mucous membranes and Atraumatic
Respiratory: Clear
Cardiac: S1/S2 and Regular Rhythm; No Murmur or Rub
GI: Soft, Non Tender, Non Distended and Normal Bowel Sounds; No Organomegaly
Rectal: Deferred by Provider
Musculoskeletal: No Clubbing, No Cyanosis and No Edema. R Upper and lower extremity weakness.
Skin: No Rash
Neuro: AO x 3 and Nonfocal/grossly intact
Psych: Calm
#acute CVA
#hemorrhagic Conversion s/p TNK in the area of the left basal ganglia which is presumed source of initial ischemic stroke
�Neurosurgical consultation
� Systolic blood pressure goal less than 140, nicardipine infusion
� Brain MRI with left preston radiata and basal ganglia infarction with hemorrhagic conversion and small hematoma within the basal ganglia infarct, no other infarcts seen, no edema or masses appreciated
� TTE with bubble study
� In setting of hemorrhagic conversion, will hold on anticoagulation for at least 5 to 7 days tentatively /
�Would favor avoiding cryoprecipitate given small hemorrhage and risk of increased clots
� Hold on antiplatelets, anticoagulation as well
-Can start HSQ
� Hemoglobin A1c 6, LDL 125
- PT/OT
#bilateral proximal pulmonary artery embolism bilaterally without saddle-like embolus
#Nonocclusive thrombus within the right profunda femoris vein.
-holding anticoag due to hemorrhagic conversion of CVA
-Tentatively
6/3
#hxt of HTN
-BP stable
-SBP goal <140
#BPH
-finasteride continued
#constipation
-lactulose continued
#hypothyroidism
-levothyroxine continued
#hxt of stage 4 right kidney ca varun to adrenal glands and lungs
-diagnosed in October
- on Keytruda infusion every 6 weeks
-due for infusion next week at [facility].
-on Lenvima daily
#CODE status
-full code
Original Note:
Today's Communication/Plan
-
Eliquis on hold. Aspirin on hold.
Continue heparin DVT.
PT and OT.
SBP<140.
TTE with bubble study tomorrow.
Assessment / Plan
Assessment / Plan
Assessment -
68-year-old male with PMHx of metastatic stage IV renal cell carcinoma (to lungs, adrenals) presents to the ER with sudden right-sided weakness, slurred speech and right-sided facial droop-diagnosed with bilateral PEs and CVA.
Plan-
acute CVA
hemorrhagic Conversion s/p TNK in the area of the left basal ganglia which is presumed source of initial ischemic stroke
Neurosurgery on board. Neurology on board.
Recommended goal SBP < 140, on IV nicardipine.
Repeat CT head, brain MRI-04/23
Stable left basal ganglia parenchymal hematoma,2.5 cm acute/subacute infarct in the left centrum semiovale periventricular region. Stable adjacent left basal ganglia parenchymal hematoma. Respectively.
TTE with bubble study pending in the a.m. tomorrow
Neurology plan is to resume Eliquis on 04/29 which is 7 days after the ICH was seen.
Would favor avoiding cryoprecipitate given small hemorrhage and risk of increased clots
Hold on antithrombotics, anticoagulation as well
Hemoglobin A1c 6, LDL 125
PT/OT and rehab assessment.
bilateral proximal pulmonary artery embolism
No saddle embolus. Nonocclusive thrombus in the right profunda femoris vein
Anticoagulation held briefly given hemorrhagic conversion of CVA.
HTN
-BP stable
-SBP goal <140
BPH
-finasteride continued
constipation
-lactulose continued
hypothyroidism
-levothyroxine continued
hxt of stage 4 right kidney ca varun to adrenal glands and lungs
-diagnosed in October
- on Keytruda infusion every 6 weeks
-due for infusion next week at [facility].
-on Lenvima daily
CODE status
-full code
Anticipated Discharge: 24 - 48 hours
Subjective/Interval History
-
Date of Service: April 23, 2024
Patient reports to have lost within his hand-it is worse than yesterday.
Denies all other complaints.
Objective Data
-
Labs:
Laboratory Results
04/23/24
03:34
WBC 6.3
Hgb 12.7 L
Hct 35.8 L
Plt Count 176
Sodium 138
Potassium 3.9
Chloride 109 H
Carbon Dioxide 22
BUN 16
Creatinine 0.8
Glucose 101 H
Calcium 9.4
Vital Signs:
Vital Signs
Temp Pulse Resp BP Pulse Ox
98.0 F 86 18 123/81 97
04/23/24 07:43 04/23/24 08:48 04/23/24 08:48 04/23/24 07:00 04/23/24 08:58
I&O
04/22/24 04/23/24 04/24/24
06:59 06:59 06:59
Intake Total 300 / 660 840 / 840
Output Total 600 / 600 700 / 700
Balance -300 / 60 140 / 140
Review of Systems
-
History Source: Patient
Constitutional: Reports No Symptoms
Respiratory: Reports No Symptoms
Cardiac: Reports No Symptoms
Abdomen/GI: Reports No Symptoms
Genitourinary: Reports No Symptoms
Musculoskeletal: Reports No Symptoms
Neuro: Reports Weakness (In the right hand.)
Hematologic / Lymphatic: Reports No Symptoms
Allergy / Immunology: Reports No Symptoms
Physical Exam
-
General: No Apparent Distress and Comfortable
HEENT: Normocephalic, Atraumatic and Moist Mucous Membranes
Respiratory: Clear to Auscultation; Negative Wheezes, Rales or Rhonchi
Cardiac: Regular Rhythm and S1/S2; Negative Murmur, Rub or Gallop
GI: Soft, Nontender, Nondistended and Normal Bowel Sounds; Negative Organomegaly
Musculoskeletal: No Clubbing, No Cyanosis and No Edema
Neuro: AO x 3, Facial Droop (Loss of nasolabial fold on the right side,) and Other (Hemiparesis in the right foot and hand. Strength in the right hand 2/5. Strength in the right arm and forearm-4/5. Strength in the right lower extremity 4/5. No
sensory deficits)
Psych: Calm
[2024-04-23] MEDS: DUPHALAC/CHRONULAC PO ×2 (12:08→20:07)
[2024-04-23 12:36] LABS: NT-proBNP 675 pg/ml
--- NOTE | 2024-04-23 13:30 | PTCARENOTE ---
OOB to chair x4 hours. Very motivated to get rehab started. He is compliant with his right arm/hand exercises. Ate most of his lunch. Clearing his throat while sitting up in the chair. Moist non-productive cough. He was encouraged to expectorated
his phlegm rather than swallow to prevent aspiration. He was instructed on use of IS and was able to pull in 1250ml's after I had him sit upright and demonstrated a deep breath in while he was taking a slow deep breath in. He is in better spirits
from this morning. He was assisted to the commode and stood with minimal assistance, was able to pivot around to sit on commode better than yesterday, moving his right L/E better. He was encouraged by that and noticed his right leg feels stronger.
He is concerned for his right hand. He feels it is getting weaker. He demonstrated the exercises the PT wrote on the board. Fine motor movement definitely impaired. Right U/E elevated on pillow. Left knee-hi SCd placed on pt. Pt will nap. Family
left the room to get lunch.
--- NOTE | 2024-04-23 15:14 | PTOTSP ---
ST Follow-Up
Pt presents with slight oropharygneal dysfunction and mild dysarthria in the presence of acute/subacute CVA.
Recommendations:
- Diet UPGRADE back to REGULAR SOLIDS (pt agreed to self-advocate for assistance) and REGULAR THIN LIQUIDS; meds as tolerated.
- General aspiration precautions: HOB raised for ALL PO intake; small bites; single sips; alternate solids/liquids; avoid speaking while eating/drinking.
- INTERVENTIONIST to continue to follow for further speech/language assessment and dysphagia tx.
- Pt would benefit from continued INTERVENTIONIST services upon d/c at the acute rehab level of care.
--- NOTE | 2024-04-23 15:26 | SUR.OPER ---
Pt and family aware pt will be downgraded to telemetry. He understands he is to continue with his rehab. He verbalized his understanding.
--- NOTE | 2024-04-23 17:30 | TRANSFER ---
Transferred pt to room [facility] via W/C. Pt had used the commode prior to transport and voided 200ml's clear yellow urine. All belongings retained from room with the help of pt's son Félix and his . Safe environment maintained.
--- NOTE | 2024-04-23 18:33 | PTCARENOTE ---
Pt transferred from ICU into room 409-2. Pt transferred with x2 assist from WC to bed. VSS Tele showing NSR. Pt oriented to room and has all boyd within reach. [facility] currently 6.
[2024-04-23] MEDS: HEPARIN 5000 UNITS SC (20:06)
[2024-04-23] MEDS: MELATONIN 5 MG PO (20:10)
[2024-04-24] VITALS (7 sets, daily range): BP systolic 118–126; BP diastolic 78–87
[2024-04-24] MEDS: SYNTHROID 75 MCG PO (05:49)
[2024-04-24 08:17] LABS: Hematocrit 37.1 % (39.0-52.0); Hemoglobin 12.9 g/dL (13.0-18.0); Mean Corp Hgb Conc. 34.8 g/dL (33.0-37.0); Mean Corpuscular Hgb 31.9 pg (27.0-31.0); Mean Corpuscular Volume 91.6 fL (80.0-94.0); Platelet Count 173 10^3/uL (130-400); Red Blood Cell Count 4.05 10^6/uL (4.70-6.10); White Blood Cell Count 6.4 10^3/uL (4.8-10.8)
--- NOTE | 2024-04-24 08:46 | PTCARENOTE ---
Pt in Cardiac Services for Echo/ Bubble Study. Left arm 18 G PC utilized, site clear pre and post NSS. Procedure completed per protocol with aseptic technique, pt tolerated procedure well. Offers no complaints, no change in status.
[2024-04-24 08:52] LABS: Blood Urea Nitrogen 21 mg/dl (9-20); Calcium 9.3 mg/dl (8.4-10.2); Carbon Dioxide 22 mmol/L (22-30); Chloride 108 mmol/L (98-107); Estimated Creatinine Clearance 84 ml/min; Glucose 99 mg/dl (70-99); Potassium 3.9 mmol/L (3.5-5.1); Sodium 137 mmol/L (135-145); eGFR > 60.00
[2024-04-24] MEDS: DUPHALAC/CHRONULAC 30 GRAMS PO (09:24)
[2024-04-24] MEDS: PROSCAR 2.5 MG PO (09:24)
[2024-04-24] MEDS: HEPARIN 5000 UNITS SC ×2 (09:24→20:28)
--- NOTE | 2024-04-24 10:31 | W.PN.HOSP.TC ---
Addendum entered and electronically signed by Marshall Guevara MD 04/24/24 17:47:
Patient seen and examined
Discussed with resident
Discussed with hematology oncology
Impression/plan:
68 years old male with metastatic renal cell carcinoma on immunotherapy treated by Dr. Sanford at [facility]
Acute CVA with right hemiparesis treated with TNK in ED. Follow-up imaging with small hemorrhagic transformation with no mass effect and no indication for surgical intervention
Incidental findings of bilateral PE with large clot burden, although with no evidence of hemodynamic instability or saddle emboli.
Renal cell carcinoma metastatic to the lungs, although according to discussion with primary oncologist with no evidence of IVC involvement.
Neurologic status stable with right hemiparesis, aphasia.
Currently not on any antiplatelet medications with plan to initiate systemic anticoagulation for pulmonary embolism
Continue physical therapy.
Physiatry consultation with likely acute rehab placement
Bilateral pulmonary embolism and incidental finding on CTA.
Stable respiratory and hemodynamic status.
Echocardiogram with preserved biventricular function and no evidence of RV strain or pulmonary hypertension.
Given acute CVA treated with TNK, later with hemorrhagic transformation not able to initiate anticoagulation.
Right lower extremity DVT
Discussed with hematology/oncology. Given high risk situation, will ask interventional radiology for IVC filter placement
Eventually plan is to start anticoagulation with Eliquis on 04/29 (7-day after imaging confirming ICH) will need prior imaging either with CT or MRI of the brain to confirm stability of intracranial findings.
Original Note:
Today's Communication/Plan
-
Physiatry consult, IVC filter placement.
Continue PT, OT.
Continue medication regimen
Assessment / Plan
Assessment / Plan
Assessment -
68-year-old male with PMHx of metastatic stage IV renal cell carcinoma (to lungs, adrenals) presents to the ER with sudden right-sided weakness, slurred speech and right-sided facial droop-diagnosed with bilateral PEs and CVA.
Plan-
acute CVA
hemorrhagic Conversion s/p TNK in the area of the left basal ganglia which is presumed source of initial ischemic stroke
Neurosurgery on board. Neurology on board.
Recommended goal SBP < 140, on IV nicardipine.
Repeat CT head, brain MRI-04/23
Stable left basal ganglia parenchymal hematoma,2.5 cm acute/subacute infarct in the left centrum semiovale periventricular region. Stable adjacent left basal ganglia parenchymal hematoma. Respectively.
Neurology plan is to resume Eliquis on 04/29 which is 7 days after the ICH was seen.
Would favor avoiding cryoprecipitate given small hemorrhage and risk of increased clots
Hold on antithrombotics, anticoagulation as well
Hemoglobin A1c 6, LDL 125
PT/OT and rehab assessment -recommended acute rehab.
Physiatry consulted. Pending evaluation
bilateral proximal pulmonary artery embolism
No saddle embolus. Nonocclusive thrombus in the right profunda femoris vein.
Echocardiogram- Normal left ventricular size, wall thickness and systolic function.
No regional wall motion abnormalities are seen.
LV ejection fraction is 60-65% by Amado's method of discs.
Stage I diastolic dysfunction suggestive of abnormal relaxation.
Normal right ventricular size and function.
No significant valvular disease.
Trace tricuspid regurgitation.
Estimated PASP of 18 mmHg.
Negative Bubble Study.
No prior study available for comparison, no evidence of RV strain.
Anticoagulation held briefly given hemorrhagic conversion of CVA.
Hematology consulted for IVC filter placement determination-appreciate hematology input.
Consult IR for IVC filter placement.
HTN
-BP stable
-SBP goal <140
BPH
-finasteride continued
constipation
-lactulose continued
hypothyroidism
-levothyroxine continued
hxt of stage 4 right kidney ca varun to adrenal glands and lungs
-diagnosed in October
- on Keytruda infusion every 6 weeks
-due for infusion next week at [facility].
-on Lenvima daily
CODE status
-full code
Anticipated Discharge: > 48 hours
Subjective/Interval History
-
Date of Service: April 24, 2024
No events reported overnight.
No improvement in strength in his right hand.
Objective Data
-
Labs:
Laboratory Results
04/24/24
07:19
WBC 6.4
Hgb 12.9 L
Hct 37.1 L
Plt Count 173
Sodium 137
Potassium 3.9
Chloride 108 H
Carbon Dioxide 22
BUN 21 H
Creatinine 0.8
Glucose 99
Calcium 9.3
Vital Signs:
Vital Signs
Temp Pulse Resp BP Pulse Ox
98.7 F 92 20 118/81 96
04/24/24 07:25 04/24/24 07:25 04/24/24 07:25 04/24/24 07:25 04/24/24 09:21
I&O
04/23/24 04/24/24 04/25/24
06:59 06:59 06:59
Intake Total 840 / 840 480 / 480
Output Total 700 / 700 300 / 300
Balance 140 / 140 180 / 180
Review of Systems
-
History Source: Patient
All other systems: Reviewed and negative
Neuro: Reports Weakness (Right upper extremity greater than right lower extremity)
Physical Exam
-
General: No Apparent Distress and Comfortable
HEENT: Normocephalic, Atraumatic, Moist Mucous Membranes and PERRLA
Respiratory: Clear to Auscultation; Negative Wheezes, Rales or Rhonchi
Cardiac: Regular Rhythm and S1/S2; Negative Murmur, Rub or Gallop
GI: Soft, Nontender, Nondistended and Normal Bowel Sounds; Negative Organomegaly
Musculoskeletal: No Clubbing, No Cyanosis and No Edema
Neuro: AO x 3, Facial Droop and Other (Hemiparesis in the right foot and hand. Strength in the right hand 1/5. Strength in the right arm and forearm-4/5. Strength in the right lower extremity 4/5. No sensory deficits)
Psych: Calm
--- NOTE | 2024-04-24 14:54 | CON.ONC ---
Impression
Impression
Acute CVA, treated with TNK, slight hemorrhagic conversion; no mass seen on MRI
Incidental finding of pulmonary emboli, bilateral
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
Plan
Plan
As per neurology, anticoagulation cannot be given for at least several more days. As such, I do not feel we can leave him on protected from further pulmonary emboli, and would recommend an IVC filter. I did discuss the case with his oncologist,
Dr. Melo Miramontes, at [place]. She tells me that he did not have IVC involvement. Discussed with primary service.
Patient History
History of Present Illness
Consult from Dr. Guevara regarding pulmonary emboli
This 68-year-old man was admitted with a CVA. This did come on rather suddenly, characterized by right-sided facial droop and arm and leg weakness. He was treated with TNK. He had some improvement, but then some worsening, and was found to have a
small hemorrhagic component at that time. He is also been found to have bilateral pulmonary emboli, for which he was having no symptoms.
He is under treatment at [facility] for a kidney cancer metastatic to the lungs, with lenvatinib and Keytruda. There was no IVC involvement by his tumor.
Past-Medical/Surgical History
HTN
Past Surgical History: Reports None
Social History
Tobacco: Non-smoker
Alcohol: None
Drug: None
Family History
Family History: Not pertinent
Patient Medication
�Medication �Instructions �Recorded �Confirmed �Last Taken �Type
docusate sodium 100 mg capsule 200 mg PO HS constipation 04/21/24 04/21/24 Unknown History
(Colace)
finasteride 5 mg tablet 2.5 mg PO DAILY Urinary Issue 04/21/24 04/21/24 Unknown History
lactulose 10 gram/15 mL oral 30 ml PO DAILY constipation 04/21/24 04/21/24 Unknown History
solution (Constulose)
lenvatinib 8 mg/day (4 mg x 2) 12 mg PO DAILY Cancer 04/21/24 04/21/24 Unknown History
capsule (Lenvima)
levothyroxine 75 mcg tablet 75 mcg PO DAILY Thyroid 04/21/24 04/21/24 Unknown History
(Synthroid)
losartan 100 mg tablet 100 mg PO HS Blood Pressure 04/21/24 04/21/24 Unknown History
omeprazole 20 mg capsule,delayed 20 mg PO HS Gastrointestinal Issue 04/21/24 04/21/24 04/20/24 History
release 20 mg
oxycodone myristate 9 mg capsule 9 mg PO BID pain 04/21/24 04/21/24 Unknown History
sprinkle extended release 12
hr(DON'T CRUSH) (Xtampza ER)
prochlorperazine maleate 10 mg 10 mg PO BIDPRN PRN nausea 04/21/24 04/21/24 Unknown History
tablet (Compazine)
sildenafil 100 mg tablet 100 mg PO DAILYPRN PRN ED 04/21/24 04/21/24 Unknown History
Active Medications
Generic Name Dose Route Start Last Admin
Trade Name Freq PRN Reason Stop Dose Admin
Acetaminophen 650 mg 04/21/24 14:58
Acetaminophen 325 Mg Tablet PO 05/19/24 14:57
Q4HPRN PRN
ELMORE, mild pain, or temp >100.4F
Finasteride 2.5 mg 04/22/24 08:00 04/24/24 09:24
Finasteride 5 Mg Tablet PO 05/20/24 07:59 2.5 mg
DAILY MARIA DE JESUS Administration
Heparin Sodium 5,000 units 04/23/24 20:00 04/24/24 09:24
Heparin 5,000 Units/Ml 1 Ml Vial SC 05/21/24 19:59 5,000 units
Q12 MRAIA DE JESUS Administration
Labetalol HCl 10 mg 04/23/24 16:07
Labetalol Hcl 5 Mg/1 Ml (20 Mg/4 Ml) Injection IV 05/19/24 14:22
Q6HPRN PRN
SBP goal <140
Lactulose 30 grams 04/21/24 20:00 04/24/24 09:24
Lactulose Solution (20 Grams/30 Ml) 30 Ml Cup PO 05/19/24 19:59 30 grams
BID MARIA DE JESUS Administration
Levothyroxine Sodium 75 mcg 04/22/24 06:00 04/24/24 05:49
Levothyroxine 75 Mcg Tablet PO 05/20/24 05:59 75 mcg
DAILY@0600 MARIA DE JESUS Administration
Melatonin 5 mg 04/22/24 22:00 04/23/24 20:10
Melatonin 5 Mg Tablet PO 05/20/24 21:59 5 mg
HS MARIA DE JESUS Administration
Sodium Chloride 0 flush 04/21/24 15:00
Sodium Chloride 0.9% (Flush) Syringe IV 05/19/24 14:59
PER PROTOCOL MARIA DE JESUS
Review of Systems
-
All Other Systems: Reviewed and Negative
Physical Exam
-
Physical examination shows the patient to be in no acute distress.
HEENT exam is unremarkable.
There are no palpable nodes.
Chest is clear.
The heart is regular with no murmur or gallop.
The abdomen is soft and nontender with no organomegaly or masses.
Extremities are unremarkable.
Neurologic shows a right facial droop.
Labs
Lab Results
WBC 6.4 10^3/uL (4.8-10.8) 04/24/24 07:19
RBC 4.05 10^6/uL (4.70-6.10) L 04/24/24 07:19
Hgb 12.9 g/dL (13.0-18.0) L 04/24/24 07:19
Hct 37.1 % (39.0-52.0) L 04/24/24 07:19
MCV 91.6 fL (80.0-94.0) 04/24/24 07:19
MCH 31.9 pg (27.0-31.0) H 04/24/24 07:19
MCHC 34.8 g/dL (33.0-37.0) 04/24/24 07:19
RDW 16.0 % (11.5-14.5) H 04/24/24 07:19
Plt Count 173 10^3/uL (130-400) 04/24/24 07:19
MPV 10.0 fL (7.4-10.4) 04/24/24 07:19
Abs Immat Gran (auto) 0.0 10^3/uL (0-0.05) 04/21/24 14:00
Absolute Neuts (auto) 2.3 10^3/uL (1.4-6.5) 04/21/24 14:00
Absolute Lymphs (auto) 1.8 10^3/uL (1.2-3.4) 04/21/24 14:00
Absolute Monos (auto) 0.4 10^3/uL (0.1-0.6) 04/21/24 14:00
Absolute Eos (auto) 0.1 10^3/uL (0-0.7) 04/21/24 14:00
Absolute Basos (auto) 0.0 10^3/uL (0-0.2) 04/21/24 14:00
Immature Gran % 0.0 % (0-0.5) 04/21/24 14:00
Neutrophils % 49.5 % (42.2-75.2) 04/21/24 14:00
Lymphocytes % 38.6 % (20.5-51.1) 04/21/24 14:00
Monocytes % 9.0 % (1.7-9.3) 04/21/24 14:00
Eosinophils % 2.2 % (0-6) 04/21/24 14:00
Basophils % 0.7 % (0-2) 04/21/24 14:00
Creatinine 0.8 mg/dL (0.7-1.3) 04/24/24 07:19
Vital Signs
Vital Signs
Temp Pulse Resp BP Pulse Ox
98.9 F 95 18 125/87 99
04/24/24 11:14 04/24/24 11:14 04/24/24 11:14 04/24/24 11:14 04/24/24 11:14
--- NOTE | 2024-04-24 16:20 | PTCARENOTE ---
Pt AAO x3, COYNE; Rt arm very weak; able to lift slightly but cannot hold arm up; weak hand grasp. Pt denies numbness RUE. Pt has (+) Rt facial droop; sl slurred speech at times. Stands with assist x1/walker, rt leg weak with attempts at ambulation.
NIHSS 7. VSS. Telemetry: NSR. On room air- pulse ox 100%, no c/o SOB. Abd soft, rounded, jasmine PO well, no dysphagia noted. Voids large amts erica urine on BSC. Resting in bed at present, no c/o. Will continue to monitor.
[2024-04-24] MEDS: MELATONIN 5 MG PO (20:27)
[2024-04-24] MEDS: PROTONIX 40 MG PO (20:27)
[2024-04-24] MEDS: DUPHALAC/CHRONULAC PO (20:28)
[2024-04-25] VITALS (7 sets, daily range): BP systolic 117–126; BP diastolic 61–90; PULSE 86–87; O2SAT 96–98
[2024-04-25] MEDS: SYNTHROID 75 MCG PO (05:22)
[2024-04-25 06:05] LABS: % Basophils 0.7 % (0-2); % Eosinophils 3.3 % (0-6); % Immature Granulocytes 0.2 % (0-0.5); % Lymphocytes 25.3 % (20.5-51.1); % Neutrophils 60.5 % (42.2-75.2); Absolute Eosinophils 0.2 10^3/uL (0-0.7); Absolute Lymphocytes 1.5 10^3/uL (1.2-3.4); Absolute Monocytes 0.6 10^3/uL (0.1-0.6); Absolute Neutrophils 3.6 10^3/uL (1.4-6.5); Hematocrit 36.1 % (39.0-52.0); Hemoglobin 12.4 g/dL (13.0-18.0); Mean Corp Hgb Conc. 34.3 g/dL (33.0-37.0); Mean Corpuscular Hgb 31.2 pg (27.0-31.0); Mean Corpuscular Volume 90.7 fL (80.0-94.0); Mean Platelet Volume 9.8 fL (7.4-10.4); Nucleated Red Blood Cells % 0 % (-); Platelet Count 187 10^3/uL (130-400); Red Blood Cell Count 3.98 10^6/uL (4.70-6.10)
[2024-04-25 06:36] LABS: ALT (SGPT) 26 U/L (0-50); AST (SGOT) 31 U/L (17-59); Albumin 3.1 g/dl (3.5-5.0); Alkaline Phosphatase 129 U/L (38-126); Blood Urea Nitrogen 23 mg/dl (9-20); Carbon Dioxide 25 mmol/L (22-30); Chloride 106 mmol/L (98-107); Estimated Creatinine Clearance 75 ml/min; Glucose 101 mg/dl (70-99); Sodium 137 mmol/L (135-145); Total Bilirubin 0.9 mg/dl (0.2-1.3); Total Protein 6.4 g/dl (6.3-8.2); eGFR > 60.00
[2024-04-25] MEDS: DUPHALAC/CHRONULAC 30 GRAMS PO (08:53)
[2024-04-25] MEDS: HEPARIN 5000 UNITS SC ×2 (08:54→20:19)
[2024-04-25] MEDS: PROSCAR 2.5 MG PO (08:54)
[2024-04-25] MEDS: FLUSH (NSS) 1 FLUSH IV (08:57)
--- NOTE | 2024-04-25 09:02 | W.PN.NEURO.1 ---
Today's Communication / Plan
-
-Neuro checks and NIH scales
-SBP less than 140
-Mobilization PT/OT
-Aspiration precautions
-Hold antiplatelets
-Okay for heparin DVT prophylaxis
-Plan for CT head 04/28 [address] if [address] findings place on anticoagulation 04/29 given pulmonary embolism
Will follow up with the upcoming brain imaging
Neuro Assessment/Plan
Assessment
68-year-old male with a past medical history of hypertension and stage IV renal cell carcinoma presented to hospital with symptoms of acute stroke with right facial arm and leg weakness, he received tenecteplase for acute ischemic stroke, initial
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
basal ganglia hemorrhage.
CTA of the head and neck did not show any significant intracranial occlusion or stenosis but did show bilateral pulmonary emboli, lower extremity ultrasound showed DVT in the right leg.
Brain hemorrhage is presumed hemorrhagic conversion of an initial ischemic stroke to the left basal ganglia in the setting of tenecteplase/thrombolytic therapy for acute ischemic stroke.
Stroke etiology: Possibility for paradoxical embolism if patient has a right to left shunt on the heart, hypercoagulability malignancy is definitely playing a role given DVT and PE, small vessel ischemic etiology of stroke also may be a possibility
given history of hypertension and location in the basal ganglia.
Patient contraindicated to anticoagulation with heparin infusion at this time given acute brain hemorrhage.
Pulmonary embolism is concerning but at this time is asymptomatic
Brain MRI with left preston radiata and basal ganglia infarction with hemorrhagic conversion and small hematoma within the basal ganglia infarct, no other infarcts seen, no edema or masses appreciated
Subjective/Objective
Subjective Data
Date of Service: April 25, 2024
No acute events, no headache, still with right sided weakness which is frustrating, did walk with walker and PT
Objective Data
Vital Signs
Temp Pulse Resp BP Pulse Ox
98 F 85 16 126/82 98
04/25/24 07:30 04/25/24 07:30 04/25/24 07:30 04/25/24 07:30 04/25/24 08:52
Lab Results
04/25/24 05:39
04/25/24 05:39
PT 16.6 Sec (11.4-14.6) H 04/22/24 02:44
INR 1.37 04/22/24 02:44
APTT 40.7 Sec (23.4-35.0) H 04/22/24 02:44
Sodium 137 mmol/L (135-145) 04/25/24 05:39
Potassium 4.0 mmol/L (3.5-5.1) 04/25/24 05:39
BUN 23 mg/dl (9-20) H 04/25/24 05:39
Glucose 101 mg/dl (70-99) H 04/25/24 05:39
Calcium 9.0 mg/dl (8.4-10.2) 04/25/24 05:39
Axn-N-Jbobdaolzkm Pept 675 pg/ml 04/23/24 03:34
LDL Cholesterol, Calc 125 mg/dl 04/22/24 02:44
Patient Allergies
latex Allergy (Verified 04/21/24 14:03)
Unknown
Review of Systems
-
History Source: Patient
All other systems: Reviewed and negative
Constitutional: No Symptoms
EENT: No Symptoms Reported
Respiratory: No Symptoms
Cardiac: No Symptoms
Abdomen/GI: No Symptoms
Genitourinary: No Symptoms
Musculoskeletal: No Symptoms
Skin: No Symptoms
Neuro: Weakness and Speech Problem
Endocrine: No Symptoms
Hematologic / Lymphatic: No Symptoms
Allergy / Immunology: No Symptoms
Physical Exam
-
General: Well Developed and Well Nourished
Eyes: No Ptosis
HEENT: Normocephalic
Neck: No Bruits Bilaterally
Respiratory: Clear to Auscultation
Cardiac: Regular Rhythm
GI: Normal Bowel Sounds
Skin: Unremarkable
Extremities: No Clubbing
Psych: Negative Confused
Extended Neurological Exam
Mood & Affect: Mood Unremarkable and Affect Unremarkable
Attention Span & Concentration: Awake, Alert and Interactive
Memory: Unremarkable
Tremor: Hand Tremor Absent
Involuntary Movement: None
Speech: Quality Unremarkable, Quantity Unremarkable and Dysarthric; Negative Expressive Aphasia or Receptive Aphasia
Cranial Nerve II: Left Eye: Pupillary Reactivity Unremarkable and Pupillary Size Unremarkable
Cranial Nerve II: Right Eye: Pupillary Reactivity Unremarkable and Pupillary Size Unremarkable
Cranial Nerves III, IV, : Extraocular Movement: Extraocular Movement Full in all Directions
Cranial Nerve VII: Facial Symmetry: Other (Right facial weakness)
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
Pronator Drift: Drift in Right Upper Extremity and Drift in Right Lower Extremity
Touch Sensation: Unremarkable
Coordination: Other (No ataxia out of proportion to weakness on right arm finger to nose)
Data Reviewed
-
CT Head: Report Reviewed and Image Reviewed
MRI Head: Report Reviewed and Image Reviewed
--- NOTE | 2024-04-25 09:10 | W.PN.HOSP.TC ---
Addendum entered and electronically signed by Marshall Guevara MD 04/25/24 17:33:
Patient seen and examined
Discussed with resident
Impression/plan:
68 years old male with metastatic renal cell carcinoma on immunotherapy treated by Dr. Sanford at [facility]
Acute CVA with right hemiparesis treated with TNK in ED. Follow-up imaging with small hemorrhagic transformation with no mass effect and no indication for surgical intervention
Incidental findings of bilateral PE with large clot burden, although with no evidence of hemodynamic instability or saddle emboli.
Renal cell carcinoma metastatic to the lungs, although according to discussion with primary oncologist with no evidence of IVC involvement.
Neurologic status stable with right hemiparesis, aphasia.
Currently not on any antiplatelet medications with plan to initiate systemic anticoagulation for pulmonary embolism
Continue physical therapy.
Physiatry consultation with likely acute rehab placement
Bilateral pulmonary embolism and incidental finding on CTA.
Stable respiratory and hemodynamic status.
Echocardiogram with preserved biventricular function and no evidence of RV strain or pulmonary hypertension.
Given acute CVA treated with TNK, later with hemorrhagic transformation not able to initiate anticoagulation.
Right lower extremity DVT
Discussed with hematology/oncology. Given high risk situation, will ask interventional radiology for IVC filter placement
Eventually plan is to start anticoagulation with Eliquis on 04/29 (7-day after imaging confirming ICH) will need prior imaging either with CT or MRI of the brain to confirm stability of intracranial findings.
Original Note:
Today's Communication/Plan
-
IVC filter placement
Continue PT and OT.
Assessment / Plan
Assessment / Plan
Assessment -
68-year-old male with PMHx of metastatic stage IV renal cell carcinoma (to lungs, adrenals) presents to the ER with sudden right-sided weakness, slurred speech and right-sided facial droop-diagnosed with bilateral PEs and CVA.
Plan-
acute CVA
hemorrhagic Conversion s/p TNK in the area of the left basal ganglia which is presumed source of initial ischemic stroke
Neurosurgery on board. Neurology on board.
Recommended goal SBP < 140, on IV nicardipine.
Repeat CT head, brain MRI-04/23
Stable left basal ganglia parenchymal hematoma,2.5 cm acute/subacute infarct in the left centrum semiovale periventricular region. Stable adjacent left basal ganglia parenchymal hematoma. Respectively.
Neurology plan is to resume Eliquis on 04/29 which is 7 days after the ICH was seen.
Would favor avoiding cryoprecipitate given small hemorrhage and risk of increased clots
Hold on antithrombotics, anticoagulation as well
Hemoglobin A1c 6, LDL 125
PT/OT and rehab assessment -recommended acute rehab.
Physiatry consulted. Pending evaluation
bilateral proximal pulmonary artery embolism
No saddle embolus. Nonocclusive thrombus in the right profunda femoris vein- undetermined if chronic or acute.
Echocardiogram- Normal left ventricular size, wall thickness and systolic function.
No regional wall motion abnormalities are seen.
LV ejection fraction is 60-65% by Amado's method of discs.
Stage I diastolic dysfunction suggestive of abnormal relaxation.
Normal right ventricular size and function.
No significant valvular disease.
Trace tricuspid regurgitation.
Estimated PASP of 18 mmHg.
Negative Bubble Study.
No prior study available for comparison, no evidence of RV strain.
Anticoagulation held briefly given hemorrhagic conversion of CVA.
Hematology consulted for IVC filter placement determination-appreciate hematology input.
No spread to IVC per his primary oncology - Dr. Melo Heard. Plan is to get IVC filter today.
HTN
-BP stable
-SBP goal <140
BPH
-finasteride continued
constipation
-lactulose continued
hypothyroidism
-levothyroxine continued
hxt of stage 4 right kidney ca varun to adrenal glands and lungs
-diagnosed in October
- on Keytruda infusion every 6 weeks
-due for infusion next week at [facility].
-on Lenvima daily
CODE status
-full code
Anticipated Discharge: > 48 hours
Subjective/Interval History
-
Date of Service: April 25, 2024
reports no symptoms overnight
No much improvement in limb function as well.
Objective Data
-
Labs:
Laboratory Results
04/25/24
05:39
WBC 6.0
Hgb 12.4 L
Hct 36.1 L
Plt Count 187
Sodium 137
Potassium 4.0
Chloride 106
Carbon Dioxide 25
BUN 23 H
Creatinine 0.9
Glucose 101 H
Calcium 9.0
Total Bilirubin 0.9
AST 31
ALT 26
Alkaline Phosphatase 129 H
Vital Signs:
Vital Signs
Temp Pulse Resp BP Pulse Ox
98 F 85 16 126/82 98
04/25/24 07:30 04/25/24 07:30 04/25/24 07:30 04/25/24 07:30 04/25/24 08:52
I&O
04/24/24 04/25/24 04/26/24
06:59 06:59 06:59
Intake Total 480 / 480 780 / 780
Output Total 300 / 300
Balance 180 / 180 780 / 780
Review of Systems
-
History Source: Patient
Constitutional: Reports No Symptoms
EENT: Reports No Symptoms Reported
Respiratory: Reports No Symptoms
Cardiac: Reports No Symptoms
Abdomen/GI: Reports No Symptoms
Genitourinary: Reports No Symptoms
Musculoskeletal: Reports No Symptoms and Muscle Weakness
Skin: Reports No Symptoms
Neuro: Reports Weakness
Hematologic / Lymphatic: Reports No Symptoms
Allergy / Immunology: Reports No Symptoms
Physical Exam
-
General: Well Developed, Well Nourished and No Apparent Distress
HEENT: Normocephalic, Atraumatic, Moist Mucous Membranes and PERRLA
Respiratory: Clear to Auscultation (no wheezes, rales and ronchi)
Cardiac: Regular Rhythm, S1/S2 and Other (no murmurs, rubs and gallops.)
GI: Soft, Nontender, Nondistended and Normal Bowel Sounds
Rectal: Deferred by Provider
Genito-urinary: No Costovertebral Tender
Skin: Warm and Normal Turgor
Neuro: AO x 3, Facial Droop and Other (Hemiparesis in the right foot and hand. Strength in the right hand 1/5. Strength in the right arm and forearm-4/5. Strength in the right lower extremity 4/5. No sensory deficits))
Psych: Calm
--- NOTE | 2024-04-25 09:17 | CON.MD ---
Consultation - Medical
-
Referring Provider: Dr. Marshall Guevara
Chief Complaint: Stroke
History of Present Illness: 68-year-old right-handed male with PMH (as below) presented to [facility] on 04/21/2024 with right sided weakness and slurred speech starting at 1:10 PM when he was unable to walk after getting out of the car and
lowered himself to the ground without injury. Initial CT of the head with no acute intracranial abnormalities. Had oxygen saturations 90% on room air. CT suspicion of bilateral proximal pulmonary embolisms bilaterally without saddle embolus. He
was given TNK and transferred to the ICU. Had worsening of NIH from 2-[address] of the head on 04/22 noting area of possible bleed with goal blood pressure less than 140. Anticoagulation and antiplatelets held for 7 days until 04/29 after
intracranial hemorrhage, except for heparin DVT prophylaxis per neurology. Echocardiogram with EF 60-65% and negative bubble study. Plan for IVC filter placement
Past Medical History: HTN, metastatic renal cancer with metastasis to the lungs and adrenal glands, hypothyroidism, constipation, BPH
Procedure History: Denies
Family History: None pertinent
Social History:
Functional Level Premorbidly: Independent with all activities
Functional Level Currently:�� Mild to moderate dysarthria, oral dysphagia with prolonged mastication. Min assist bed mobility and transfers. Mod assist ambulating 22 feet x 2 with rolling walker with second person for assist. Min assist lower
extremity self-care.
Tobacco: Denies
Alcohol: Denies
Drug use: Denies
Lives with: Spouse
24-hour assistance available: Yes
Number of floors: 2
# steps to enter: 0, has a ramp
# steps to second floor: Full flight
Potential First floor set up: Yes, bedroom on first floor, wheelchair accessible first floor
Driving: Yes
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
Allergies:
Allergy/AdvReac Type Severity Reaction Status Date / Time
latex Allergy Unknown Verified 04/21/24 14:03
Review of Systems:
Constitutional: (x) abNormal _fatigue
Eye: (x) Normal _
Ear/Nose/Throat: (x) Normal _
Respiratory: (x) Normal _
Cardiovascular: (x) Normal _
Gastrointestinal: (x) Normal _
Genitourinary: (x) Normal _
Musculoskeletal: (x) Normal _
Integumentary: (x) Normal _
Neurologic: (x) abNormal _right-sided weakness, denies any swallowing concerns, no vision concerns
Psychiatric: (x) Normal _
Endocrine: (x) Normal _
Hematologic/Lymphatic: (x) Normal _
Allergic/Immunologic: (x) Normal _
Medications:
Active Current Visit Medication List
Category Date Time Status
Acetaminophen [Tylenol] Med 04/21/24 14:58 Active
650 mg PO Q4HPRN PRN
Finasteride [Proscar] Med 04/22/24 08:00 Active
2.5 mg PO DAILY
Flush (0.9% Sodium Chloride) [Flush (Nss)] Med 04/21/24 15:00 Active
See Dose Instructions IV PER PROTOCOL
Heparin Med 04/23/24 20:00 Active
5,000 units SC Q12
Labetalol HCl [Trandate] Med 04/23/24 16:07 Active
10 mg IV Q6HPRN PRN
Lactulose [Duphalac/Chronulac] Med 04/21/24 20:00 Active
30 grams PO BID
Levothyroxine [Synthroid] Med 04/22/24 06:00 Active
75 mcg PO DAILY@0600
Melatonin Med 04/22/24 22:00 Active
5 mg PO HS
Pantoprazole [Protonix] Med 04/24/24 22:00 Active
40 mg PO HS
Vitals:
Temp Pulse Resp BP Pulse Ox
97.7 F 92 16 117/90 100
04/25/24 15:10 05/29/24 15:10 04/25/24 15:10 04/25/24 15:10 04/25/24 15:26
Height 5 ft 9 in
Actual Weight 68.266 kg
Body Mass Index (BMI) 22.2
Physical Exam:
General Appearance/Observation: Well-developed, well-nourished male in no apparent distress.
Pain/Comfort Assessment: Denies
Mood/Affect: Appropriate
Integumentary/Operative Site: No lesions during course of exam
�� Pressure Ulcer Evaluation: Not assessed
Eyes: Conjunctiva/Lids: normal ��� Pupils: pupils equal round and reactive to light and Accommodation
Ears/Nose/Throat: oral mucosa moist,� throat clear.������������ Lips/Teeth/Gums: normal
Neck: No muscle spasm or tenderness
Cardiovascular: Heart: regular, no murmur
Pulses: dorsalis pedis 2+ bilaterally
Respiratory: Respiratory Effort/Chest Expansion: normal ������ Auscultation: Clear to auscultation bilaterally
Gastrointestinal: abdomen not tender, no distension, normal abdominal bowel sounds
Genitourinary: No Haynes
Extremities: Edema: None Cyanosis: None Trophic changes: None
Neurology Exam:
Orientation: Alert, Oriented to self, Time, Place
Memory: Intact for recent medical concerns
Repetition: Intact
Comprehension: Intact
Two step command: Intact
Cranial Nerves:
�� CNII: Pupillary light reflex: Intact��� Visual Field: Intact
�� CN III, IV, : Extraocular muscles: Intact
�� CN V: Facial Sensation at Forehead: Intact, Maxilla: Intact, Mandible: Intact
�� CN VII: Facial movement: Mild right facial weakness
�� CN VIII: Hearing: Normal
�� CN IX/X: Speech & swallow: Slight dysarthria, Position of Uvula: Midline
�� CN XI: Shoulder shrug: Decreased on right
�� CN XII: Tongue protrusion: Midline
Sensory:
�� Light touch: Intact in bilateral upper and lower extremities, no extinction to double simultaneous stimulation
Reflexes:
�� Biceps: 2+ bilaterally
�� Brachioradialis: 2+ bilaterally
�� Triceps: 2+ bilaterally
�� Patellar: 2+ bilaterally
�� Achilles: 2+ bilaterally
�� Babinski: Down going bilaterally
�� Clonus: None
�� Jess: Negative bilaterally
Cerebellar: Dysmetria/Ataxia: None
Musculoskeletal:Motor: (Manual muscle scale 0-5)
Muscle SA EF WE EE FF FA HF KE DF EHL PF
Right� 3 3+ 3 2 1 1 3 4 4+ 4 4
Left 5 5 5 5 5 5 4 5 5 5 5
Tone: Normal in all extremities
Range of Motion: Passively within normal limits in all extremities
Lab Results
Laboratory Data
04/25/24 05:39
04/25/24 05:39
PT 16.6 Sec (11.4-14.6) H 04/22/24 02:44
INR 1.37 04/22/24 02:44
APTT 40.7 Sec (23.4-35.0) H 04/22/24 02:44
Total Bilirubin 0.9 mg/dl (0.2-1.3) 04/25/24 05:39
AST 31 U/L (17-59) 04/25/24 05:39
ALT 26 U/L (0-50) 04/25/24 05:39
Alkaline Phosphatase 129 U/L (38-126) H 04/25/24 05:39
Total Protein 6.4 g/dl (6.3-8.2) 04/25/24 05:39
Albumin 3.1 g/dl (3.5-5.0) L 04/25/24 05:39
Diagnostic Results: as per HPI
Assessment
68-year-old M PMH (HTN, metastatic renal cancer with metastasis to the lungs and adrenal glands, hypothyroidism, constipation, BPH) with 04/21/2024 with right sided weakness and slurred speech s/p TNK with left basal ganglia hemorrhagic conversion,
B/L proximal pulmonary embolisms bilaterally without saddle embolus --- causing ADL, ambulatory, and speech dysfunction.
Plan
PM&R PT/OT to increase independence with ADLs, improve balance, coordination, endurance, strength, mobility, community reintegration, decreased burden of care on others and family education.
CVA: Secondary prophylaxis with statin, and blood pressure control (SBP less than 140 and diastolic less than 90 to participate with therapy with hemorrhagic stroke). Continue to monitor neurologic status.
Right dominant hemiparesis: High risk for falls and sliding out of chair/bed. Safety reinforced.
- Avoid using affected arm to help lift or pull patient as this will cause trauma to the shoulder.
Dysphagia: speech, oral care protocol, aspiration precautions.� Regular diet.
Dysarthria: speech
Bilateral pulmonary emboli: For IVC filter on 04/26/2024. Plan to start anticoagulation 04/29/2024 if no new concerns on imaging. Has right-sided weakness and cancer history making higher risk for thrombosis.
HTN: Change IV labetalol as needed to oral, monitor closely
Hypothyroidism: levothyroxine
Normocytic anemia: 12.4 from 12.9 from 12.7.� Continue to monitor.
FEN: Elevated BUN, encourage hydration.
Psych: Psychology consult.� Monitor mood, medications as needed. Taking melatonin for sleep
Skin: monitor for pressure sores/rashes/lesions.
Pain: acetaminophen as needed.
Bowel: Colace and Senna, PRN bisacodyl. Currently taking lactulose
Bladder: Time void, PVRs, PRN straight cath. Taking finasteride
GI Prophylaxis: Pantoprazole
DVT Prophylaxis: Mechanical and heparin.
Pulmonary: Incentive spirometry
Safety: Continue to reinforce assistance with all transfers.
Code Status:� Full code
Dispo (date/plan/equipment needs): Home with family care.
Discharge Destination: Acute inpatient rehabilitation
Functional and Medical Goals: Modified Independent with ADL�s, ambulation, transfers
A total of 60 minutes were spent with the patient preparing for the evaluation, obtaining history, performing examination and evaluation, counseling, data review, case management, care coordination, border measurer and cutter, and EMR documentation.
Summary of recommendations:
- Discharge Destination: Acute inpatient rehabilitation
CVA: Secondary prophylaxis with aspirin, statin, and blood pressure control (SBP less than 140 and diastolic less than 90 to participate with therapy for ischemic stroke). Continue to monitor neurologic status.
Right dominant hemiparesis: High risk for falls and sliding out of chair/bed. Safety reinforced.
- Avoid using affected arm to help lift or pull patient as this will cause trauma to the shoulder.
Dysphagia: speech
Dysarthria: speech
Bilateral pulmonary emboli: For IVC filter on 04/26/2024. Plan to start anticoagulation 04/29/2024 if no new concerns on imaging. Has right-sided weakness and cancer history making higher risk for thrombosis.
HTN: Change IV labetalol as needed to oral, monitor closely
Hypothyroidism: levothyroxine
Normocytic anemia: Stable in 12 range
FEN: encourage hydration.
Psych: Psychology consult.� Monitor mood, medications as needed. Taking melatonin for sleep
Skin: monitor for pressure sores/rashes/lesions.
Pain: acetaminophen as needed.
Bowel: Colace and Senna, PRN bisacody
--Need to determine whether anticoagulation should be started and monitored in the hospital versus rehab.
--- NOTE | 2024-04-25 09:43 | PN.CDI ---
Addendum entered and electronically signed by Marshall Guevara MD 04/27/24 16:00:
Unable to comment.
Original Note:
CDI
- -
CDI:
Physician Documentation Request
Admit Date: 04/21/24 14:44
Dear Doctor Ry,
04/24 hospitalist progress note states Nonocclusive thrombus in the right profunda femoris vein.
Please clarify which of the following accurately represents the acuity of the thrombus.
____ Acute
Chronic
____ Other
Use of terms such as suspected, likely, concern for, or probable (associated with a specific diagnosis that is being evaluated, monitored, or treated as if it exists) are acceptable and can be coded in the inpatient setting, when documented at the
time of discharge.
Thank you,
Aniyah Torres RN, BSN
CDI Specialist
tiger text
Please use your independent medical judgment in providing your response.
--- NOTE | 2024-04-25 15:26 | PTCARENOTE ---
Pt AAO x3, COYNE; able to lift Rt arm slightly; has (+) Rt facial droop; slurred speech at times. OOB to chair with assist x1/walker, jasmine well; RLE weakness with attempts at ambulation. VSS. Telemetry:NSR. On room air- pulse ox 100%, no SOB noted.
Abd soft, rounded, jasmine PO well, no sx of aspiration noted. Voids on BSC without difficulty. resting in chair at present, no c/o. Will continue to monitor.
[2024-04-25] MEDS: PROTONIX 40 MG PO (20:19)
[2024-04-25] MEDS: MELATONIN 5 MG PO (20:19)
[2024-04-25] MEDS: DUPHALAC/CHRONULAC PO (20:19)
[2024-04-26] VITALS (9 sets, daily range): BP systolic 92–138; BP diastolic 74–94
[2024-04-26] MEDS: SYNTHROID 75 MCG PO (05:59)
[2024-04-26 07:34] LABS: % Basophils 0.8 % (0-2); % Eosinophils 1.9 % (0-6); % Immature Granulocytes 0.4 % (0-0.5); % Monocytes 12.4 % (1.7-9.3); % Neutrophils 55.5 % (42.2-75.2); Absolute Eosinophils 0.1 10^3/uL (0-0.7); Absolute Lymphocytes 1.5 10^3/uL (1.2-3.4); Absolute Monocytes 0.6 10^3/uL (0.1-0.6); Absolute Neutrophils 2.9 10^3/uL (1.4-6.5); Hematocrit 37.1 % (39.0-52.0); Hemoglobin 12.4 g/dL (13.0-18.0); Mean Corp Hgb Conc. 33.4 g/dL (33.0-37.0); Mean Corpuscular Hgb 31.5 pg (27.0-31.0); Mean Corpuscular Volume 94.2 fL (80.0-94.0); Nucleated Red Blood Cells % 0 % (-); Platelet Count 197 10^3/uL (130-400); Red Blood Cell Count 3.94 10^6/uL (4.70-6.10); Red Cell Dist. Width 15.9 % (11.5-14.5); White Blood Cell Count 5.2 10^3/uL (4.8-10.8)
[2024-04-26 08:03] LABS: ALT (SGPT) 24 U/L (0-50); AST (SGOT) 28 U/L (17-59); Albumin 3.2 g/dl (3.5-5.0); Alkaline Phosphatase 129 U/L (38-126); Blood Urea Nitrogen 24 mg/dl (9-20); Calcium 9.2 mg/dl (8.4-10.2); Carbon Dioxide 25 mmol/L (22-30); Chloride 104 mmol/L (98-107); Estimated Creatinine Clearance 67 ml/min; Glucose 95 mg/dl (70-99); Potassium 4.1 mmol/L (3.5-5.1); Sodium 136 mmol/L (135-145); Total Bilirubin 0.9 mg/dl (0.2-1.3); Total Protein 6.4 g/dl (6.3-8.2); eGFR > 60.00
[2024-04-26] MEDS: DUPHALAC/CHRONULAC 30 GRAMS PO (09:31)
[2024-04-26] MEDS: PROSCAR 2.5 MG PO (09:31)
[2024-04-26] MEDS: HEPARIN 5000 UNITS SC ×2 (09:33→20:07)
--- NOTE | 2024-04-26 09:49 | W.PN.HOSP.TC ---
Addendum entered and electronically signed by Marshall Guevara MD 04/26/24 16:40:
Patient seen and examined
Discussed with resident
Impression/plan:
68 years old male with metastatic renal cell carcinoma on immunotherapy treated by Dr. Sanford at [facility]
Acute CVA with right hemiparesis treated with TNK in ED. Follow-up imaging with small hemorrhagic transformation with no mass effect and no indication for surgical intervention
Incidental findings of bilateral PE with large clot burden, although with no evidence of hemodynamic instability or saddle emboli.
Renal cell carcinoma metastatic to the lungs, although according to discussion with primary oncologist with no evidence of IVC involvement.
Neurologic status stable with right hemiparesis, aphasia.
Currently not on any antiplatelet medications with plan to initiate systemic anticoagulation for pulmonary embolism
Continue physical therapy.
Physiatry consultation with likely acute rehab placement
Bilateral pulmonary embolism and incidental finding on CTA.
Stable respiratory and hemodynamic status.
Echocardiogram with preserved biventricular function and no evidence of RV strain or pulmonary hypertension.
Given acute CVA treated with TNK, later with hemorrhagic transformation not able to initiate anticoagulation.
Right lower extremity DVT
Discussed with hematology/oncology. Given high risk situation, will ask interventional radiology for IVC filter placement
Eventually plan is to start anticoagulation with Eliquis on 04/29 (7-day after imaging confirming ICH) will need prior imaging either with CT or MRI of the brain to confirm stability of intracranial findings.
Original Note:
Today's Communication/Plan
-
IVC filter placement.
No change in medication regimen
Assessment / Plan
Assessment / Plan
Assessment -
68-year-old male with PMHx of metastatic stage IV renal cell carcinoma (to lungs, adrenals) presents to the ER with sudden right-sided weakness, slurred speech and right-sided facial droop-diagnosed with bilateral PEs and CVA.
Plan-
acute CVA
hemorrhagic Conversion s/p TNK in the area of the left basal ganglia which is presumed source of initial ischemic stroke
Neurosurgery on board. Neurology on board.
Recommended goal SBP < 140, on IV nicardipine.
Repeat CT head, brain MRI-04/23
Stable left basal ganglia parenchymal hematoma,2.5 cm acute/subacute infarct in the left centrum semiovale periventricular region. Stable adjacent left basal ganglia parenchymal hematoma. Respectively.
Neurology plan is to resume Eliquis on 04/29 which is 7 days after the ICH was seen.
Would favor avoiding cryoprecipitate given small hemorrhage and risk of increased clots
Hold on antithrombotics, anticoagulation as well
Hemoglobin A1c 6, LDL 125
PT/OT and rehab assessment -recommended acute rehab.
Physiatry consulted. Pending evaluation
bilateral proximal pulmonary artery embolism
No saddle embolus. Nonocclusive thrombus in the right profunda femoris vein- undetermined if chronic or acute.
Echocardiogram- Normal left ventricular size, wall thickness and systolic function.
No regional wall motion abnormalities are seen.
LV ejection fraction is 60-65% by Amado's method of discs.
Stage I diastolic dysfunction suggestive of abnormal relaxation.
Normal right ventricular size and function.
No significant valvular disease.
Trace tricuspid regurgitation.
Estimated PASP of 18 mmHg.
Negative Bubble Study.
No prior study available for comparison, no evidence of RV strain.
Anticoagulation held briefly given hemorrhagic conversion of CVA.
Hematology consulted for IVC filter placement determination-appreciate hematology input.
No spread to IVC per his primary oncology - Dr. Melo Heard. Plan is to get IVC filter today.
HTN
-BP stable
-SBP goal <140
BPH
-finasteride continued
constipation
-lactulose continued
hypothyroidism
-levothyroxine continued
hxt of stage 4 right kidney ca varun to adrenal glands and lungs
-diagnosed in October
- on Keytruda infusion every 6 weeks
-due for infusion next week at [facility].
-on Lenvima daily
CODE status
-full code
Anticipated Discharge: > 48 hours
Subjective/Interval History
-
Date of Service: April 26, 2024
no symptoms overnight
Objective Data
-
Labs:
Laboratory Results
04/26/24
06:51
WBC 5.2
Hgb 12.4 L
Hct 37.1 L
Plt Count 197
Sodium 136
Potassium 4.1
Chloride 104
Carbon Dioxide 25
BUN 24 H
Creatinine 1.0
Glucose 95
Calcium 9.2
Total Bilirubin 0.9
AST 28
ALT 24
Alkaline Phosphatase 129 H
Vital Signs:
Vital Signs
Temp Pulse Resp BP Pulse Ox
98 F 86 18 120/81 99
04/26/24 08:11 04/26/24 08:11 04/26/24 08:11 04/26/24 08:11 04/26/24 08:11
I&O
04/25/24 04/26/24 04/27/24
06:59 06:59 06:59
Intake Total 780 / 780 840 / 840
Balance 780 / 780 840 / 840
Review of Systems
-
History Source: Patient
Constitutional: Reports Weakness
Respiratory: Reports No Symptoms
Cardiac: Reports No Symptoms
Abdomen/GI: Reports No Symptoms
Genitourinary: Reports No Symptoms
Musculoskeletal: Reports No Symptoms
Neuro: Reports No Symptoms
Endocrine: Reports No Symptoms
Hematologic / Lymphatic: Reports No Symptoms
Physical Exam
-
General: Comfortable (on room air)
HEENT: Normocephalic, Atraumatic and Moist Mucous Membranes
Respiratory: Clear to Auscultation; Negative Wheezes, Rales or Rhonchi
Cardiac: Regular Rhythm and S1/S2; Negative Murmur, Rub or Gallop
GI: Soft, Nontender and Nondistended
Genito-urinary: No Costovertebral Tender
Musculoskeletal: No Clubbing, No Cyanosis and No Edema
Neuro: AO x 3
Psych: Calm
--- NOTE | 2024-04-26 17:00 | CM ---
I met with Marcelo with his family this afternoon. We spoke about acute rehab and he would prefer to go to [facility] at .
[facility] referral sent.
Will follow up in AM regarding bed availability.
[2024-04-26] MEDS: MELATONIN 5 MG PO (22:17)
[2024-04-26] MEDS: PROTONIX 40 MG PO (22:17)
[2024-04-27] VITALS (8 sets, daily range): BP systolic 111–134; BP diastolic 76–89; PULSE 88; O2SAT 100
[2024-04-27] MEDS: SYNTHROID 75 MCG PO (05:06)
[2024-04-27] MEDS: HEPARIN 5000 UNITS SC ×2 (07:44→21:00)
[2024-04-27] MEDS: PROSCAR 2.5 MG PO (07:44)
[2024-04-27] MEDS: FLUSH (NSS) 1 FLUSH IV (07:46)
[2024-04-27 09:39] LABS: Hematocrit 38.1 % (39.0-52.0); Hemoglobin 12.9 g/dL (13.0-18.0); Mean Corp Hgb Conc. 33.9 g/dL (33.0-37.0); Mean Corpuscular Hgb 31.5 pg (27.0-31.0); Mean Corpuscular Volume 93.2 fL (80.0-94.0); Mean Platelet Volume 10.1 fL (7.4-10.4); Platelet Count 204 10^3/uL (130-400); Red Blood Cell Count 4.09 10^6/uL (4.70-6.10); Red Cell Dist. Width 15.8 % (11.5-14.5); White Blood Cell Count 4.6 10^3/uL (4.8-10.8)
[2024-04-27 10:12] LABS: ALT (SGPT) 25 U/L (0-50); AST (SGOT) 29 U/L (17-59); Albumin 3.6 g/dl (3.5-5.0); Alkaline Phosphatase 137 U/L (38-126); Blood Urea Nitrogen 24 mg/dl (9-20); Calcium 9.1 mg/dl (8.4-10.2); Carbon Dioxide 25 mmol/L (22-30); Chloride 105 mmol/L (98-107); Estimated Creatinine Clearance 75 ml/min; Glucose 90 mg/dl (70-99); Sodium 137 mmol/L (135-145); Total Bilirubin 0.9 mg/dl (0.2-1.3); Total Protein 7.2 g/dl (6.3-8.2); eGFR > 60.00
--- NOTE | 2024-04-27 15:14 | W.PN.HOSP.TC ---
Today's Communication/Plan
-
Continue neurologic monitoring
Repeat CT scan of the head in AM.
Continue physical therapy.
Assessment / Plan
Assessment / Plan
Impression:
Acute CVA.
Presentation with right hemiparesis.
Status post TNK in ED
Follow-up imaging with small hemorrhagic transformation with no mass effect and no indication for surgical intervention
Neurologic status remains stable with mild aphasia and right upper extremity weakness
Repeat CT scan of the head on 04/28
Physiatry evaluation appreciated with plan for acute rehab
Bilateral pulmonary embolism as an incidental finding on CT upon admission.
Stable respiratory and hemodynamic status since admission
Echocardiogram with preserved biventricular function and no evidence of RV strain or pulmonary hypertension.
Given acute CVA treated with TNK as well as later found hemorrhagic transformation patient was not a candidate for anticoagulation
Right lower extremity DVT
Status post IVC filter placement on 04/26.
Plan is for initiation of anticoagulation with Eliquis on 04 29 (a 7-day after imaging confirmed ICH) as far as stable neurologically. Follow-up CT scan of the head on 04/28 prior to initiation.
Renal cell carcinoma stage IV.
Treated at [facility]
Diagnosis since October 2024.
On Keytruda infusion every 6 weeks.
On Lenvima daily
HTN
-BP stable
-SBP goal <140
BPH
-finasteride continued
constipation
-lactulose continued
hypothyroidism
-levothyroxine continued
Anticipated Discharge: > 48 hours
Subjective/Interval History
-
Date of Service: April 27, 2024
Objective Data
-
Labs:
Laboratory Results
04/27/24
08:44
WBC 4.6 L
Hgb 12.9 L
Hct 38.1 L
Plt Count 204
Sodium 137
Potassium 4.0
Chloride 105
Carbon Dioxide 25
BUN 24 H
Creatinine 0.9
Glucose 90
Calcium 9.1
Total Bilirubin 0.9
AST 29
ALT 25
Alkaline Phosphatase 137 H
Vital Signs:
Vital Signs
Temp Pulse Resp BP Pulse Ox
99.1 F 87 16 130/76 99
04/27/24 11:08 04/27/24 11:08 04/27/24 11:08 04/27/24 11:08 04/27/24 11:08
I&O
04/26/24 04/27/24 04/28/24
06:59 06:59 06:59
Intake Total 840 / 840 480 / 480
Balance 840 / 840 480 / 480
Physical Exam
-
General: Well Developed and No Apparent Distress
HEENT: Normocephalic, Atraumatic and Moist Mucous Membranes
Respiratory: Clear to Auscultation
Cardiac: Regular Rhythm and S1/S2; Negative Murmur, Rub or Gallop
GI: Soft, Nontender, Nondistended and Normal Bowel Sounds; Negative Organomegaly
Rectal: Deferred by Provider
Musculoskeletal: No Clubbing, No Cyanosis and No Edema
Skin: Negative Rash
Neuro: Awake, Alert, Oriented, AO x 3 and Other (Right upper extremity weakness/drift)
--- NOTE | 2024-04-27 16:57 | PTCARENOTE ---
Pt AAO x3, COYNE; OOB to chair/BSC with assist x1/walker, jasmine well; has slight RLE weakness with ambulation. NIHSS 6- Rt facial droop/occ sl slurred speech/RUE weakness- able to lift arm for short period. Fall prec maintained. VSS. On room air-
pulse ox 97%, no SOB noted. Abd soft, rounded, jasmine chol lowering diet, no dysphagia noted. Voids mod amts yellow/erica urine on BSC.. Resting in chair at present, no c/o. Family members at bedside. Will continue to monitor.
[2024-04-27] MEDS: MELATONIN 5 MG PO (21:00)
[2024-04-27] MEDS: PROTONIX 40 MG PO (21:00)
[2024-04-28 03:34] VITALS: BP 123/82
[2024-04-28] MEDS: SYNTHROID 75 MCG PO (05:33)
[2024-04-28] MEDS: DUPHALAC/CHRONULAC 30 GRAMS PO (05:37)
[2024-04-28 07:20] VITALS: BP 128/81
[2024-04-28] MEDS: PROSCAR 2.5 MG PO (08:23)
[2024-04-28] MEDS: HEPARIN 5000 UNITS SC ×2 (08:25→20:49)
--- NOTE | 2024-04-28 08:35 | PTCARENOTE ---
pt aox3, nih 5. pt states that he feels that his r arm rom is slightly improved from yesterday. right neck bandaid in place from filter procedure yesterday.denies pain, sob, chest pain. oob to chair,call boyd in reach
[2024-04-28 11:07] VITALS: BP 133/85
[2024-04-28 15:20] VITALS: BP 138/82
--- NOTE | 2024-04-28 17:14 | W.PN.HOSP.TC ---
Today's Communication/Plan
-
If remains with stable neurologic status, plan is to start anticoagulation with Eliquis 5 mg twice daily on 04/29
Continue physical therapy
Hopefully for acute rehab/most on 04/30.
Assessment / Plan
Assessment / Plan
Impression:
Acute CVA.
Presentation with right hemiparesis.
Status post TNK in ED
Follow-up imaging with small hemorrhagic transformation with no mass effect and no indication for surgical intervention
Neurologic status remains stable with mild aphasia and right upper extremity weakness
Repeat CT scan of the head on 04/28 with stable findings and slightly improved hemorrhagic area
Physiatry evaluation appreciated with plan for acute rehab
Bilateral pulmonary embolism as an incidental finding on CT upon admission.
Stable respiratory and hemodynamic status since admission
Echocardiogram with preserved biventricular function and no evidence of RV strain or pulmonary hypertension.
Given acute CVA treated with TNK as well as later found hemorrhagic transformation patient was not a candidate for anticoagulation
Right lower extremity DVT
Status post IVC filter placement on 04/26.
Plan is for initiation of anticoagulation with Eliquis on 04/29 (a 7-day after imaging confirmed ICH) as far as stable neurologically. Start Eliquis at 5 mg twice daily and avoiding loading dose.
Renal cell carcinoma stage IV.
Treated at [facility]
Diagnosis since October 2024.
On Keytruda infusion every 6 weeks.
On Lenvima daily
HTN
-BP stable
-SBP goal <140
BPH
-finasteride continued
constipation
-lactulose continued
hypothyroidism
-levothyroxine continued
Anticipated Discharge: 24 - 48 hours
Subjective/Interval History
-
Date of Service: April 28, 2024
Objective Data
-
Vital Signs:
Vital Signs
Temp Pulse Resp BP Pulse Ox
98.4 F 85 18 138/82 100
04/28/24 15:20 04/28/24 15:20 04/28/24 15:20 04/28/24 15:20 04/28/24 15:20
I&O
04/27/24 04/28/24 04/29/24
06:59 06:59 06:59
Intake Total 480 / 480 1320 / 1320
Balance 480 / 480 1320 / 1320
Physical Exam
-
General: Well Developed and No Apparent Distress
HEENT: Normocephalic, Atraumatic and Moist Mucous Membranes
Respiratory: Clear to Auscultation
Cardiac: Regular Rhythm and S1/S2; Negative Murmur, Rub or Gallop
GI: Soft, Nontender, Nondistended and Normal Bowel Sounds; Negative Organomegaly
Rectal: Deferred by Provider
Musculoskeletal: No Clubbing, No Cyanosis and No Edema
Skin: Negative Rash
Neuro: Awake, Alert, Oriented, AO x 3 and Other (Right upper extremity drift/weakness)
[2024-04-28 19:23] VITALS: BP 104/81
--- NOTE | 2024-04-28 19:39 | PTCARENOTE ---
assumed care of patient at 1630. see intervention documentation.
[2024-04-28] MEDS: PROTONIX 40 MG PO (22:00)
[2024-04-28] MEDS: MELATONIN 5 MG PO (22:00)
[2024-04-28 23:53] VITALS: BP 126/80
[2024-04-29 03:45] VITALS: BP 130/82
[2024-04-29] MEDS: SYNTHROID 75 MCG PO (05:44)
[2024-04-29] MEDS: DUPHALAC/CHRONULAC 30 GRAMS PO (05:50)
[2024-04-29 07:15] VITALS: BP 119/90
[2024-04-29] MEDS: HEPARIN 5000 UNITS SC (09:52)
[2024-04-29] MEDS: PROSCAR 2.5 MG PO (09:53)
[2024-04-29 11:10] VITALS: BP 128/85
--- NOTE | 2024-04-29 14:12 | W.PN.HOSP.TC ---
Today's Communication/Plan
-
starting Eliquis today
for [facility] tomorrow
Assessment / Plan
Assessment / Plan
Impression:
04/29/24 -- plan for [facility] rehab tomorrow--staring Eliquis 5 mg BID tonight--stop SC heparin
Acute CVA.
Presentation with right hemiparesis.
Status post TNK in ED
Follow-up imaging with small hemorrhagic transformation with no mass effect and no indication for surgical intervention
Neurologic status remains stable with mild aphasia and right upper extremity weakness
Repeat CT scan of the head on 04/28 with stable findings and slightly improved hemorrhagic area
Physiatry evaluation appreciated with plan for acute rehab
Bilateral pulmonary embolism as an incidental finding on CT upon admission.
Stable respiratory and hemodynamic status since admission
Echocardiogram with preserved biventricular function and no evidence of RV strain or pulmonary hypertension.
Given acute CVA treated with TNK as well as later found hemorrhagic transformation patient was not a candidate for anticoagulation
Right lower extremity DVT
Status post IVC filter placement on 04/26.
Plan is for initiation of anticoagulation with Eliquis on 04/29 (a 7-day after imaging confirmed ICH) as far as stable neurologically. Start Eliquis at 5 mg twice daily and avoiding loading dose.
Renal cell carcinoma stage IV.
Treated at [facility]
Diagnosis since October 2024.
On Keytruda infusion every 6 weeks.
On Lenvima daily
HTN
-BP stable
-SBP goal <140
BPH
-finasteride continued
constipation
-lactulose continued
hypothyroidism
-levothyroxine continued
Anticipated Discharge: Within 24 hours
Subjective/Interval History
-
Date of Service: April 29, 2024
pt without c/o--waiting for [facility]
Objective Data
-
Vital Signs:
max temp for 24 hours
04/29/24
11:10
Temp 99.1 F
Vital Signs
Temp Pulse Resp BP Pulse Ox
99.1 F 84 20 128/85 98
04/29/24 11:10 04/29/24 11:10 04/29/24 11:10 04/29/24 11:10 04/29/24 11:10
I&O
04/28/24 04/29/24 04/30/24
06:59 06:59 06:59
Intake Total 1320 / 1320 840 / 840
Balance 1320 / 1320 840 / 840
Review of Systems
-
All other systems: Reviewed and negative
Physical Exam
-
General: Well Developed and Appears Chronically Ill
HEENT: Normocephalic and Atraumatic
Respiratory: Clear to Auscultation; Negative Wheezes or Rhonchi
Cardiac: Regular Rhythm and S1/S2; Negative Murmur
GI: Soft, Nontender, Nondistended and Normal Bowel Sounds
Musculoskeletal: No Clubbing, No Cyanosis and No Edema
Neuro: Awake and Alert
[2024-04-29 15:25] VITALS: BP 130/80
[2024-04-29 19:30] VITALS: BP 124/79
[2024-04-29] MEDS: ELIQUIS 5 MG PO (21:29)
[2024-04-29] MEDS: PROTONIX 40 MG PO (21:30)
[2024-04-29] MEDS: MELATONIN 5 MG PO (21:30)
[2024-04-29 23:48] VITALS: BP 125/79
[2024-04-30 03:50] VITALS: BP 126/82
[2024-04-30] MEDS: SYNTHROID 75 MCG PO (05:56)
[2024-04-30 07:45] VITALS: BP 122/88
[2024-04-30] MEDS: PROSCAR 2.5 MG PO (09:35)
[2024-04-30] MEDS: ELIQUIS 5 MG PO (09:36)
--- NOTE | 2024-04-30 11:01 | W.PN.ONC ---
Today's Communication / Plan
-
He is to be transferred to acute rehab. I discussed with him that the filter should remain in for at least the next several weeks until it is clear that he will tolerate full dose anticoagulation. It will be up to him and his oncologist at [facility] as to whether to remove it at that time.
Impression
Impression
Acute CVA, treated with TNK, slight hemorrhagic conversion; no mass seen on MRI
Incidental finding of pulmonary emboli, bilateral
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
Plan
Plan
As per neurology, anticoagulation cannot be given for at least several more days. As such, I do not feel we can leave him on protected from further pulmonary emboli, and would recommend an IVC filter. I did discuss the case with his oncologist,
Dr. Melo Miramontes, at [facility]. She tells me that he did not have IVC involvement. Discussed with primary service.
Subjective/Objective
Subjective/Objective
He is feeling somewhat better. He is getting around with a walker. Physical examination is unchanged.
Vital Signs:
Vital Signs
Temp Pulse Resp BP Pulse Ox
98.5 F 79 18 122/88 97
04/30/24 07:45 04/30/24 07:45 04/30/24 07:45 04/30/24 07:45 04/30/24 07:45
Lab Results:
Laboratory Data
WBC 4.6 10^3/uL (4.8-10.8) L 04/27/24 08:44
Hgb 12.9 g/dL (13.0-18.0) L 04/27/24 08:44
Plt Count 204 10^3/uL (130-400) 04/27/24 08:44
PT 16.6 Sec (11.4-14.6) H 04/22/24 02:44
INR 1.37 04/22/24 02:44
APTT 40.7 Sec (23.4-35.0) H 04/22/24 02:44
eGFR > 60.00 04/27/24 08:44
[2024-04-30 11:58] VITALS: BP 126/81
[2024-04-30 13:53] VITALS: BP 128/92
--- NOTE | 2024-04-30 14:20 | W.DS.TRANS ---
DC Summary - [employer]
-
Discharge Instructions:
Discharge Diagnosis/Procedures Acute stroke status post lytic therapy in the ED
with subsequent hemorrhagic transformation,
bilateral pulmonary embolism, renal cell
carcinoma stage IV, essential hypertension,
benign prostatic hyperplasia, constipation,
hypothyroidism
Diet As tolerated
Activity As tolerated
Driving Restrictions No driving
Bathing Restrictions None
Instructions:
Stand-Alone Forms:
Changes to Home Medications: Yes
Discharge Medications:
DC Medications w/original date entered in [facility]
docusate sodium 100 mg capsule (Colace) 200 mg PO HS constipation 04/21/24
finasteride 5 mg tablet 2.5 mg PO DAILY Urinary Issue 04/21/24
lactulose 10 gram/15 mL oral solution (Constulose) 30 ml PO DAILY PRN constipation 04/21/24
lenvatinib 8 mg/day (4 mg x 2) capsule (Lenvima) 12 mg PO DAILY Cancer 04/21/24
levothyroxine 75 mcg tablet (Synthroid) 75 mcg PO DAILY Thyroid 04/21/24
losartan 100 mg tablet 100 mg PO HS Blood Pressure 04/21/24
omeprazole 20 mg capsule,delayed release 20 mg PO HS Gastrointestinal Issue 04/21/24
prochlorperazine maleate 10 mg tablet (Compazine) 10 mg PO BIDPRN PRN nausea 04/21/24
apixaban 5 mg tablet (Eliquis) 5 mg PO BID #60 tabs 04/30/24
polyethylene glycol 3350 17 gram oral powder packet (HealthyLax) 17 g PO DAILY #14 ea 04/30/24
Home Medication Changes
Initiated on anticoagulation with Eliquis.
Pending Results: No
[2024-04-30 15:06] VITALS: BP 123/81
[2024-04-30] MEDS: MIRALAX 17 GRAMS PO (15:46)
== END 2024-04-30 16:15 | DRG 61 ==
LOC: 4 EAST ACU 14:44
PROVIDERS: Radiology Vascular & Interventional Radiology; Registered Nurse; Student in an Organized Health Care Education/Training Program; ADMITTING PHYSICIAN Internal Medicine; ATTENDING PHYSICIAN Internal Medicine; CONSULT PHYSICIAN Internal Medicine Critical Care Medicine; CONSULT PHYSICIAN Internal Medicine Hematology & Oncology; CONSULT PHYSICIAN Physical Medicine & Rehabilitation; CONSULT PHYSICIAN Student in an Organized Health Care Education/Training Program; EMERGENCY PHYSICIAN Student in an Organized Health Care Education/Training Program; OTHER PHYSICIAN Neurological Surgery
PROC: 3E03317 Introduction of Other Thrombolytic into Peripheral Vein, Percutaneous Approach (ICD-10-PCS; 2024-04-21)
PROC: 06H03DZ Insertion of Intraluminal Device into Inferior Vena Cava, Percutaneous Approach (ICD-10-PCS; 2024-04-26)
DX: I63.89 Other cerebral infarction (principal); I26.99 Other pulmonary embolism without acute cor pulmonale; I61.8 Other nontraumatic intracerebral hemorrhage; C64.1 Malignant neoplasm of right kidney, except renal pelvis; C78.00 Secondary malignant neoplasm of unspecified lung; C79.72 Secondary malignant neoplasm of left adrenal gland; C79.71 Secondary malignant neoplasm of right adrenal gland; G81.91 Hemiplegia, unspecified affecting right dominant side; E87.1 Hypo-osmolality and hyponatremia; R47.01 Aphasia; R29.810 Facial weakness; I10 Essential (primary) hypertension; N40.0 Benign prostatic hyperplasia without lower urinary tract symptoms; K59.00 Constipation, unspecified; E03.9 Hypothyroidism, unspecified; K21.9 Gastro-esophageal reflux disease without esophagitis; D63.0 Anemia in neoplastic disease; E88.09 Other disorders of plasma-protein metabolism, not elsewhere classified; R13.11 Dysphagia, oral phase; Z79.899 Other long term (current) drug therapy
CPT/HCPCS: 37191; 70450; 70496; 70498; 70551; 71045; 80048; 80053; 80061; 82962; 83036; 83880; 84484; 85025; 85027; 85610; 85730; 92507; 92523; 92526; 92610; 93005; 93306; 93970; 96374; 97110; 97112; 97116; 97163; 97167; 97535; 99291; C1769; C1880; J3101; Q9967

== ENCOUNTER → 2024-11-06 09:04 | Outpatient (REF) | payer MEDICARE, OTHER, SELFPAY ==
[2024-11-06 09:38] LABS: Hemoglobin 12.7 g/dL (13.0-18.0); Mean Corp Hgb Conc. 32.6 g/dL (33.0-37.0); Mean Corpuscular Hgb 30.4 pg (27.0-31.0); Mean Corpuscular Volume 93.3 fL (80.0-94.0); Mean Platelet Volume 9.9 fL (7.4-10.4); Platelet Count 181 10^3/uL (130-400); Red Blood Cell Count 4.18 10^6/uL (4.70-6.10); Red Cell Dist. Width 15.2 % (11.5-14.5); White Blood Cell Count 4.4 10^3/uL (4.8-10.8)
[2024-11-06 09:42] LABS: INR 1.26; PT 16.1 Sec (11.4-14.6)
[2024-11-06 09:52] VITALS: BP 123/68; BP_SYST 81
[2024-11-06 10:08] LABS: Blood Urea Nitrogen 27 mg/dl (9-20)
[2024-11-06 11:35] VITALS: BP 102/86
== END ==
LOC: RADI 09:04
PROVIDERS: ATTENDING PHYSICIAN Radiology Vascular & Interventional Radiology; FAMILY PHYSICIAN Family Medicine
DX: Z45.89 Encounter for adjustment and management of other implanted devices (principal); Z79.01 Long term (current) use of anticoagulants; D68.8 Other specified coagulation defects
CPT/HCPCS: 36415; 37193; 82565; 84520; 85027; 85610; 99152; 99153; C1769; C1773